=== PATIENT | male | born 1950 | race Caucasian/White ===

== ENCOUNTER → 2017-11-06 12:41 | Outpatient (CLI) | payer MEDICARE, SELFPAY ==
--- NOTE | 2017-11-06 12:55 | MRI_ITS ---
STUDY: MRI LUMBAR SPINE WITHOUT CONTRAST REASON FOR EXAM: Male, 67 years old. Back and right leg pain TECHNIQUE: Standardized fat and water weighted pulse sequences were obtained in the sagittal and axial planes. COMPARISON: February 10, 2016 FINDINGS: No evidence for acute fracture or subluxation There are multiple scattered interosseous fatty deposits or hemangiomata. T12-L1: Normal endplates. Normal disc height, hydration and morphology. Normal bilateral facet joints. Normal central canal and bilateral lateral recesses. Normal bilateral intervertebral neural foramina. Normal lumbar lordosis. There is no substantial scoliosis. Normal conus medullaris that terminates at T12-L1 L1-2: Normal endplates. Normal disc height, hydration and morphology. Normal bilateral facet joints. Normal central canal and bilateral lateral recesses. Normal bilateral intervertebral neural foramina. L2-3: Normal endplates. Normal disc height, hydration and minimal annular bulge.. Minor facet arthropathy.. Normal central canal. Mild bilateral recess encroachment.. Normal bilateral intervertebral neural foramina. L3-4: Grade 1 spondylolisthesis Normal endplates. Normal disc height, desiccation and mild bulging disc osteophyte complex.. Facet arthropathy and thickening of ligamenta flava.. Moderate narrowing of the central canal. Moderate to severe bilateral recess and neuroforaminal stenosis exaggerated by shortened pedicles. L4-5: Normal endplates. Narrowed disc space and desiccation of the disc and minor annular bulge.. Bilateral facet arthropathy and mild thickening of ligamenta flava.. Normal central canal. Moderate to severe bilateral recess and neuroforaminal stenosis.. L5-S1: Normal endplates. Normal disc height, desiccation and minimal bulging disc osteophyte complex.. Bilateral facet arthropathy.. Normal central canal and bilateral lateral recesses. Normal bilateral intervertebral neural foramina. Normal visualized sacral ala. Normal visualized paraspinous soft tissue structures. No significant change since prior exam MRI/Spine Lumbar (Routine) IMPRESSION: Spinal stenosis at L3-4 and L4-5 secondary to disc disease and bony hypertrophy exaggerated by shortened pedicles. Other findings as above Electronically Signed: Michael Roberto MD at 21:28 EDT , Service support ,
== END ==
PROVIDERS: Family Provider Family Medicine; PCP Family Medicine; Visit Provider Anesthesiology Pain Medicine
DX: M54.9 Dorsalgia, unspecified (principal); M79.606 Pain in leg, unspecified
CPT/HCPCS: 72148

== ENCOUNTER 2018-01-16 18:21 | Emergency (ER) | payer MEDICARE, SELFPAY ==
[2018-01-16 18:22] VITALS: BP 126/69; PULSE 68; RESP 15; TEMP 36.8; O2SAT 98; BMI 41.3
[2018-01-16] MEDS: carBAMazepine 200 MG Tablet 100 MG PO (19:06)
--- NOTE | 2018-01-16 19:21 | ED.VISSUMM ---
- ER Visit Summary Date of Service: 01/16/18 Chief Complaint: Head pain History of Present Illness: The patient is a [address] Thapa. Patient reports that beginning yesterday he is having intermittent episodes of a sharp pain left side of his head the last seconds at a time. He states pain Zeta 10 at worst and is pain-free currently. Is worsened by twisting Z. She relieved by Tylenol. Has any change in his vision. No numbness or weakness. No photophobia. No nausea or vomiting. Review of systems: General: No fever, chills, cold sweats. Cardiovascular: No chest pain, palpitations. Respiratory: No cough, shortness of breath, dyspnea on exertion. Gastrointestinal: No abdominal pain, nausea, vomiting, diarrhea, melena, or hematochezia. Genitourinary: No dysuria, frequency, hematuria. Skin: No rash. Neuro: No headache, numbness, weakness. Physical Examination: Vitals: Stable. Afebrile. General: Well-nourished and well-developed. Head: Normocephalic atraumatic. Neck: Supple, no lymphadenopathy. No JVD. Nontender. Cardiovascular: Regular rate and rhythm. No murmurs. Respiratory: No respiratory distress. Clear to auscultation bilaterally. Abdominal: Soft, nontender, nondistended, normal bowel sounds. No guarding, rebound, or peritoneal signs. Back: Nontender. Extremities: Nontender, no edema. Skin: Normal color, no rash. Neurologic: Alert and oriented ?3. Cranial nerves II through XII are intact. Normal strength and sensation. Psych: Normal affect. Test Results: Clinical Impression(s) from Imaging Studies Brain CT 01/16/18 18:44 IMPRESSION: Mild periventricular white matter ischemic changes.. Arachnoid cyst in the right middle cranial fossa which is not clinically significant. No evidence for obstructive hydrocephalus mass or acute bleed Bilateral maxillary ethmoid and right sphenoid sinusitis Electronically Signed: Michael Roberto MD at 19:14 EDT , Service support , Emergency Department Course and Treatment: Patient's location of his pain is in the superior portion of the mandibular branch of the trigeminal nerve. He was treated with Tegretol p.o. and is resting comfortably. Treatment Plan: Patient will be discharged Tegretol. Instructed follow-up his primary care physician in 3-5 days if not improving to increase the dose of this. Return to the emergency department for any worsening symptoms. Disposition: To home in improved and stable condition. Impression: 1. Trigeminal neuralgia. This note was generated with [employer] dictation software. It may contain incorrect words, spelling, and punctuation that were not noted in review of the chart prior to signing ED Disposition - Plan for ED Patient: Disposition: Home or Assisted Living Chief Complaint: Headache Instructions: ED Neuralgia Trigeminal Prescriptions: Carbamazepine [Tegretol] 100 mg PO BIDCM #30 tablet Referrals: Wallace Thapa MD [Primary Care Provider] - 3-5 Days
[2018-01-16 19:33] VITALS: O2SAT 94
== END 2018-01-16 19:34 | disposition home or self-care (01) ==
LOC: ED 19:12
PROVIDERS: Emergency Provider Emergency Medicine; Family Provider Family Medicine; PCP Family Medicine
DX: G50.0 Trigeminal neuralgia (principal); I10 Essential (primary) hypertension; E78.00 Pure hypercholesterolemia, unspecified
CPT/HCPCS: 70450; 99283

== ENCOUNTER → 2018-07-02 12:02 | Outpatient (CLI) | payer MEDICARE, SELFPAY ==
[2018-07-02 13:25] LABS: Hemoglobin A1c 5.8 % (4.2-6.3)
[2018-07-02 13:27] LABS: ALB/GLOB Ratio 1.3 RATIO (0.9-2.4); AST(SGOT) 20 U/L (15-37); Alanine Aminotransfer ALT/SGPT 36 U/L (16-61); Albumin, Serum 3.9 g/dL (3.2-5.0); Alkaline Phosphatase 57 U/L (45-117); Anion Gap 8 (5-15); BUN 20 mg/dL (7-18); BUN/Creat Ratio 25.3 RATIO (10-20); Calcium,Total 8.7 mg/dL (8.5-10.1); Chloride 107 mmol/L (98-107); Cholesterol 153 mg/dL (200); Creatinine, Serum 0.79 mg/dL (0.70-1.30); EST Glomerular Filtration Rate 104 mL/min (>60); Est Glom Filt Rate - Afr Amer 126 mL/min (>60); Glucose 95 mg/dL (74-106); High Density Lipoprotein 32 mg/dL; Potassium 4.1 mmol/L (3.5-5.1); Protein, Total 6.9 g/dL (6.4-8.2); Sodium Level 139 mmol/L (136-145); Triglycerides 159 mg/dL; Very Low Density Lipoprotein 32 mg/dL (5-40)
== END ==
PROVIDERS: Family Provider Family Medicine; PCP Family Medicine; Referring Provider Family Medicine; Visit Provider Family Medicine
DX: Z00.00 Encounter for general adult medical examination without abnormal findings (principal); E87.2 Acidosis; Z79.899 Other long term (current) drug therapy
CPT/HCPCS: 80053; 80061; 83036

== ENCOUNTER → 2018-11-05 | Outpatient (CLI) | payer MEDICARE, SELFPAY ==
[2018-11-05 16:31] LABS: Absolute Lymphocyte Count 1.45 X10^3/ul (0.83-4.51); Absolute Neutrophil Count 5.9 X10^3/uL (2.0-7.7); Basophil# 0.04 X10^3/uL; Basophil% 0.5 % (0-1); Eosinophil# 0.29 X10^3/uL; Eosinophils% 3.4 % (0-5); Hemoglobin 15.4 g/dl (13.0-16.5); Lymphocyte # 1.45 X10^3/ul (4.0); Lymphocyte % 17.2 % (19-41); Mean Corp Hgb Conc 34.2 g/gl (32-36); Mean Corpuscular Hgb 32.4 pg (27.0-32.0); Mean Corpuscular Volume 94.7 fL (80-94); Mean Platelet Vol. 10.2 fl (6.2-12.0); Monocyte# 0.75 X10^3/uL; Monocyte% 8.9 % (0-10); Neutrophil % 69.8 % (47-70); Platelet Count 289 K/mm3 (150-450); RBC Distribution Width CV 13.2 % (11.6-14.6); RBC Distribution Width SD 45.9 fl (35.1-43.9); Red Blood Count 4.75 M/mm3 (4.6-6.2); White Blood Count 8.5 K/mm3 (4.4-11.0)
[2018-11-05 16:33] LABS: POSITIVE COUNT NO; POSITIVE DIFFERENTIAL NO; POSITIVE MORPHOLOGY NO
[2018-11-05 16:36] LABS: Anion Gap 9 (5-15); BUN 16 mg/dL (7-18); BUN/Creat Ratio 18.8 RATIO (10-20); CRP < 2.90 mg/L (0.0-3.0); Chloride 104 mmol/L (98-107); Creatinine, Serum 0.85 mg/dL (0.70-1.30); EST Glomerular Filtration Rate 96 mL/min (>60); Erythrocyte Sedimentation Rate 9 mm/hr (0-20); Est Glom Filt Rate - Afr Amer 116 mL/min (>60); Glucose 90 mg/dL (74-106); Potassium 4.1 mmol/L (3.5-5.1); Sodium Level 139 mmol/L (136-145); Thyroid Stim Hormone (TSH) 1.78 uIU/mL (0.358-3.74)
[2018-11-09 03:06] LABS: Lyme IgG P18 Ab Absent (.); Lyme IgG P23 Ab Absent (.); Lyme IgG P28 Ab Absent (.); Lyme IgG P30 Ab Absent (.); Lyme IgG P39 Ab Absent (.); Lyme IgG P41 Ab Absent (.); Lyme IgG P45 Ab Absent (.); Lyme IgG P58 Ab Absent (.); Lyme IgG P66 Ab Absent (.); Lyme IgG P93 Ab Absent (.); Lyme IgM P23 Ab Absent (.); Lyme IgM P39 Ab Absent (.); Lyme IgM P41 Ab Absent (.)
[2018-11-11 11:36] LABS: Lyme IgG WB Interpretation Negative (.); Lyme IgM WB Interpretation Negative (.)
== END | disposition home or self-care (01) ==
PROVIDERS: Referring Provider Family Medicine; Visit Provider Family Medicine
DX: R53.83 Other fatigue (principal); M79.10 Myalgia, unspecified site
CPT/HCPCS: 80048; 84443; 85025; 85652; 86140; 86617

== ENCOUNTER → 2019-05-06 16:25 | Outpatient (CLI) | payer MEDICARE, SELFPAY ==
--- NOTE | 2019-05-06 16:30 | RAD_ITS ---
STUDY: X-RAY - LUMBAR SPINE REASON FOR EXAM: Male, 68 years old. Low back pain. TECHNIQUE: 3 view(s) of the lumbar spine were obtained. COMPARISON: 12/22/2015. FINDINGS: Normal lumbar lordosis. There is no substantial scoliosis. There is a normal alignment of the vertebrae. Normal vertebral bodies. There is multilevel spondylosis.. There is multi-level degenerative disc disease with multi-level disc space narrowing. There are degenerative changes of the facet joints throughout the mid and lower spine. The soft tissue structures are unremarkable. RAD/Lumbar Spine 2 or 3 Views IMPRESSION: Degenerative changes of the spine, as detailed above. No demonstrated fracture. Electronically Signed: Jacky Richmond MD at 4:34 EST , Service support ,
== END ==
PROVIDERS: Family Provider Family Medicine; PCP Family Medicine; Referring Provider Anesthesiology Pain Medicine; Visit Provider Anesthesiology Pain Medicine
DX: M54.9 Dorsalgia, unspecified (principal)
CPT/HCPCS: 72100

== ENCOUNTER → 2019-07-03 16:48 | Outpatient (CLI) | payer MEDICARE, SELFPAY ==
[2019-07-03 17:26] LABS: Absolute Lymphocyte Count 1.38 X10^3/uL (0.83-4.51); Absolute Neutrophil Count 5.9 X10^3/uL (2.0-7.7); Basophil# 0.07 X10^3/uL; Basophil% 0.8 % (0-1); Eosinophil# 0.23 X10^3/uL; Eosinophils% 2.8 % (0-5); Hematocrit 46.3 % (40-54); Hemoglobin 15.3 g/dL (13.0-16.5); Lymphocyte # 1.38 X10^3/ul (4.0); Lymphocyte % 16.7 % (19-41); Mean Corpuscular Volume 93.7 fL (80-94); Mean Platelet Vol. 9.7 fl (6.2-12.0); Monocyte# 0.67 X10^3/uL; Monocyte% 8.1 % (0-10); NRBC Flagged by Analyzer 0 % (0-5); Neutrophil # 5.88 X10^3/uL (2.7-7.7); Neutrophil % 71.2 % (47-70); Platelet Count 308 K/mm3 (150-450); RBC Distribution Width SD 44.4 fl (35.1-43.9); Red Blood Count 4.94 M/mm3 (4.6-6.2); White Blood Count 8.3 K/mm3 (4.4-11.0)
[2019-07-03 17:27] LABS: CRP 4.63 mg/L (0.0-3.0)
[2019-07-03 17:29] LABS: Erythrocyte Sedimentation Rate 17 mm/hr (0-20)
== END ==
PROVIDERS: PCP Family Medicine; Referring Provider Ophthalmology; Visit Provider Ophthalmology
DX: M31.6 Other giant cell arteritis (principal)
CPT/HCPCS: 85025; 85652; 86140

== ENCOUNTER → 2019-07-14 06:35 | Outpatient (CLI) | payer MEDICARE, SELFPAY ==
--- NOTE | 2019-07-14 06:41 | MRI_ITS ---
EXAM DESCRIPTION: MRI of the brain and orbits CLINICAL HISTORY: 68 years Male, vision loss left eye, optic nerve edema COMPARISON: Previous CT scan obtained on 01/17/2000 TECHNIQUE: An MRI was performed utilizing axial diffusion and ADC map images followed by axial T2 and FLAIR and gradient echo images followed by sagittal and axial T1 weighted images. Coronal T2-weighted images through the orbits were obtained along with axial pre and postcontrast T1-weighted images through the orbits followed by coronal postcontrast T1-weighted images through the orbits. FINDINGS: The diffusion weighted axial images and ADC map images of the head show no evidence of restricted diffusion. The mars, medulla and midbrain and cerebellum appear to be normal. The ventricles and sulci are normal in size and shape. There are some scattered focal areas of increased signal seen in the sánchez radiata bilaterally, commonly found patient''s age. In addition there appears to be a fluid collection seen anterior to the right temporal lobe in the anterior aspect of the middle cranial fossa most likely representing an arachnoid cyst.The basal ganglia appear to be normal. No enhancing masses or lesions are seen. The gradient echo axial images are normal. No evidence of a Chiari I malformation is identified. The fourth segment of the left vertebral artery appears to be normal and supplies the basilar artery. The V4 segment of the right vertebral artery is small and probably supplies only the right PICA. the basilar artery, the posterior cerebral arteries have a normal P1 and P2 segment on the right but on the left, there appears to be a origin of the left posterior cerebral artery. On the coronal images there are findings suspicious for aneurysm involving the A1 segment of the left anterior cerebral artery with a flow void measuring about 6 x 5 mm in size. This is of uncertain etiology and could be tortuosity of this vessel, however, a barium aneurysm in this location cannot be completely excluded. For this reason, MRA of the head would be helpful for additional evaluation. the cavernous and supraclinoid carotid arteries, and the M1 segments of the middle cerebral arteries are all normal The orbits were carefully examined. The right globe and optic nerve was well visualized and appears to be normal. On the left side the retinal orbital and canalicular and cisternal segments of the left optic nerve appear to be normal. The left optic tract appears to be compressed by a 6 x 5 mm signal void structure suspicious for a frausto aneurysm. . The pituitary and pituitary infundibulum appear to be normal. The inner and outer tables of the skull are normal the frontal sinuses are normal. There is mucoperiosteal reaction involving the right ethmoid sinuses and the right maxillary sinus. Left maxillary sinus is normal. The mastoid air cells are normal. MRI/Brain W/WO Contrast IMPRESSION: 1. A questionable 5 x 6 mm ovoid signal void is noted adjacent to the left optic tract of uncertain etiology. A frausto aneurysm cannot be completely excluded and an MRA of the head is recommended for further evaluation. 2. Low-grade sinusitis involving the right ethmoid and maxillary sinuses. Electronically Signed: Cj Marshall, at 12:12 EST Tel , Service support ,
[2019-07-14 13:56] LABS: CREATININE FINGERSTICK 1.1 mg/dL (0.70-1.30); EGFR FINGERSTICK > 60.0000 mL/min (>60)
== END ==
PROVIDERS: PCP Family Medicine; Referring Provider Ophthalmology; Visit Provider Ophthalmology
DX: H47.10 Unspecified papilledema (principal); H54.62 Unqualified visual loss, left eye, normal vision right eye
CPT/HCPCS: 70553; A9575

== ENCOUNTER → 2019-07-22 17:42 | Outpatient (CLI) | payer MEDICARE, SELFPAY ==
--- NOTE | 2019-07-22 18:15 | MRI_ITS ---
STUDY: MRA OF THE HEAD WITHOUT CONTRAST REASON FOR EXAM: Male, 68 years old. Acute vision loss left eye, ? aneurysm seen on MRI brain07/14/19 TECHNIQUE: 3-D [id number] (TOF) imaging was performed with MIPs. The study was performed unenhanced. COMPARISON: None. FINDINGS: Normal bilateral petrous carotid arteries. Normal right cavernous carotid artery with a normal supraclinoid bifurcation. Normal left cavernous carotid artery with a normal supraclinoid bifurcation. Normal right A1 segments of the anterior cerebral artery. Normal left A1 segments of the anterior cerebral artery. Normal intact anterior communicating artery (ACOM). Normal bilateral A2 segments of the anterior cerebral arteries. Normal right M1 and M2 segments of the middle cerebral arteries, with a normal M1 bifurcation. Normal left M1 and M2 segments of the middle cerebral arteries, with a normal M1 bifurcation. Posterior communicating arteries are not visualized which may be consistent with normal variant. Left vertebral artery is normal. The distal right vertebral is nonvisualized.. Normal basilar artery with a normal basilar bifurcation. The visualized bilateral superior cerebellar (SCA) arteries are normal. Normal left posterior cerebral artery.. Hypoplastic P1 and P2 segments of the right posterior cerebral artery There is no demonstrated aneurysm of the chitina of [place]. There is no major vessel occlusion or hemodynamically significant stenosis. There is no demonstrated abnormality of the visualized brain. MRI/MRA Head ONLY without Contrast IMPRESSION: Normal MRA of the head No evidence for aneurysm Electronically Signed: Michael Roberto MD at 19:32 EST , Service support ,
== END ==
PROVIDERS: PCP Family Medicine; Referring Provider Ophthalmology; Visit Provider Ophthalmology
DX: H54.62 Unqualified visual loss, left eye, normal vision right eye (principal)
CPT/HCPCS: 70544

== ENCOUNTER 2020-07-14 10:30 | Outpatient (RCR) | payer MEDICARE, SELFPAY ==
--- NOTE | 2020-06-17 12:48 | HP.PTEVAL_ITS ---
Patient's Visit Information PARKER JAY is a 69 year old M referred to Physical Therapy by Dr. Gonzalo Lacy DO with a diagnosis of Lumbar Stenosis with LE radiculopathy; Leg Pain. Date of Evaluation: 06/17/20 Physical Therapist: Milad Deal, PT, Cert MDT, OCS - Visit Plan Frequency: 2x /Week Duration: 4 Weeks Plan: 2xs/week for 4 weeks per POC. PT Interventions: Lumbar AROM, LE strengthening, Core stabilization exercises, gait, postural training. - Subjective Patient is a 69 year old male presenting to the clinic with R LE pain from the knee down. Patient states right LE pain has worsened in the past 3-4 days. Saw the yesterday. Was getting injections about a year ago but did not see benefits. Started exercising last Sunday after having a year off. Hx of bilateral knee arthroplasty and R foot surgery. Pain is located in lateral calf and R knee. Pain is constant with standing, walking, sitting. Denies any numbness/tingling in R LE. Coughing and sneezing is positive. B&B working well. Returning to in 6 weeks if pain hasn't subsided. Sees primary care beginning of July. Pain is impacting sleeping negatively.Patient has h/o lumbar pain with PT and pain management .Recent imaging x-rays of right knee a nd lower leg tibia/fibula. Patie nt had MRI 2018 showed mod/severe foraminal stenosis and mod cnals stenosis. Social: - Pain Right Lower Extremity Pain Intensity (Out of 10): 8 Pain Intensity Range: 10 Comment: Pain located in R knee and lateral calf. - Objective Gait: Antalgic gait on R, slight lateral lean. Required rest breaks walking into clinic due to pain. Palpation: Unremarkable. Posture: Foward flexion. Sensation: Intact to light tough in B LE. Reflexes: WNL. Lumbar AROM: Flexion 50% (decreased LE symptoms), Ext 25% (increased symptoms). LE Strength: R hip flexion 4+/5, quads 5/5, hams 5/5, DF 5/5, PF 5/5, hip IR 5/5, hip ER 5/5. L hip flexion 5/5, quads 5/5, hams 5/5, DF 5/5, PF 5/5, hip IR 5/5, hip ER 5/5. SLR: Positive on R, Negative on L - Special Tests L/S Left Straight Leg Raise: Negative L/S Right Straight Leg Raise: Positive Lumbar Standing: Flexion - Mechanical Response: No effect Lumbar Standing: Flexion - Symptoms During Testing: Decreases Lumbar Standing: Flexion - Symptoms After Testing: Better Comments:: Calf Lumbar Standing: Extension - Mechanical Response: No effect Lumbar Standing: Extension - Symptoms During Testing: Increases Lumbar Standing: Extension - Symptoms After Testing: Worse - Goals Goal 1:: Patient will demonstrate independence with HEP. Goal Time Frame: 4-6 Weeks Goal 2:: Patient will improve LE strength to 5/5 for improved functional strength. Goal Time Frame: 4-6 Weeks Goal 3:: Patient will demonstrate improved lumbar ROM to <50% limitation for improved functional mobility. Goal Time Frame: 4-6 Weeks Goal 4:: Patient will improve Oswestry disability index (back) by 5 or > points for improved QOL. Goal Time Frame: 4-6 Weeks Goal 5:: Normalized gait pattern with less antalgic gait. - Rehabilitation Potential Physical Therapy Diagnosis: Patient is a 69 year old male presenting to the clinic with radicular symptoms into R LE. Pain likely due to lateral stenosis with foraminal narrowing. Pain helped with lumbar flexion and increased by lumbar extension. Rehabilitation Potential: Good - Anticipated Interventions Patient/Client Instruction: Educate patient on: Condition, Plan of Care For the Purpose of:: To decrease pain, To increase ROM, To improve muscle performance and motor function, To improve ability to perform ADL's, To increase tolerance to activity/condition/position, To improve performance and independence with ADL's, To improve ability of physical actions for home/community/work/leisure, To improve gait and locomotor functions, To improve health of tissue, To increase flexibility/ROM, To improve health and function, To improve self management, To improve ability to perform tasks related to life management, To improve tolerance to ADL's Therapeutic Exercise to Include: Strength training, Body mechanics, Postural training, Flexibilty training, Gait and locomotor training, Active ROM Comment: LE strengthening, Core strength/stability For the Purpose of:: To decrease pain, To increase ROM, To improve muscle performance and motor function, To improve ability to perform ADL's, To increase tolerance to activity/condition/position, To improve performance and independence with ADL's, To improve ability of physical actions for home/community/work/leisure, To increase flexibility/ROM, To improve health and function, To improve ability to perform tasks related to life management, To improve tolerance to ADL's IF ES: Yes Other electric stimulation: Yes Cryotherapy (ice pack, ice massage): Yes Thermo therapy (hot pack): Yes Ultrasound (thermal/non thermal): Yes For the Purpose of:: To decrease pain, To increase ROM, To improve muscle performance and motor function, To improve ability to perform ADL's, To increase tolerance to activity/condition/position, To improve performance and independence with ADL's, To improve ability of physical actions for home/community/work/leisure, To increase flexibility/ROM, To improve health and function, To improve ability to perform tasks related to life management, To improve tolerance to ADL's Thank you for the opportunity to evaluate your patient. For Medicare and Medicare HMO plans, please review the plan of care and approve it. It will need to be FAXED BACK to us at [phone] for Medicare purposes. For Medicare only, by signing this I certify the plan of care. Please let me know if there are questions or concerns regarding this plan of c are. Physician Signature: Date:
--- NOTE | 2020-07-14 11:30 | HP.PTDCSUM ---
It has been my pleasure to treat PARKER JAY referred by Dr. Gonzalo Lacy DO, with the diagnosis of Lumbar Stenosis with LE radiculopathy; Leg Pain for a total of 9 visit(s). Discharge Date: 07/14/20 Please see the following information for a summary of their discharge status. Subjective: Patient states he is feeling about the same. Reports his pain levels have deccreased since starting therapy. Reports wanting to continue on his own and be D/C from therapy. Right Lower Extremity Pain Intensity (Out of 10): 5 % Improvement: 80 Objective/Function: Lumbar AROM: Flexion 75%, ext 50%, Sidebending 75%, Rotation 50%. LE MMT: L hip flexion 5/5, quad 5/5, hams 5/5, DF 5/5, PF 5/5. R hip flexion 5/5, quad 5/5, hams 5/5, DF 5/5, PF 5/5. Patient tolerated all exercise this date with no reports of increased pain. Goal 1:: Patient will demonstrate independence with HEP. Goal Progress: Goal Met Goal 2:: Patient will improve LE strength to 5/5 for improved functional strength. Goal Progress: Goal Met Goal 3:: Patient will demonstrate improved lumbar ROM to <50% limitation for improved functional mobility. Goal Progress: Progressing Goal 4:: Patient will improve Oswestry disability index (back) by 5 or > points for improved QOL. Goal Progress: Goal Met Goal 5:: Normalized gait pattern with less antalgic gait. Goal Progress: Goal Met Plan: d/c to gym and hep Discharge Comments: HEP AND GYM If there are questions or concerns regarding this patient's physical therapy, please feel free to call me at [phone]. Thank you for the referral of this patient. Sincerely, Milad Deal, PT, Cert MDT, OCS
== END 2020-07-14 19:00 | disposition home or self-care (01) ==
LOC: PT 10:30
PROVIDERS: PCP Family Medicine; Referring Provider Orthopaedic Surgery; Visit Provider Orthopaedic Surgery
DX: M48.061 Spinal stenosis, lumbar region without neurogenic claudication (principal); M54.16 Radiculopathy, lumbar region; M79.606 Pain in leg, unspecified
CPT/HCPCS: 97110; 97162

== ENCOUNTER → 2020-07-21 10:03 | Outpatient (CLI) | payer MEDICARE, SELFPAY ==
[2020-07-21 10:37] LABS: Cholesterol 161 mg/dL (200); High Density Lipoprotein 33 mg/dL; Triglycerides 177 mg/dL; Very Low Density Lipoprotein 35 mg/dL (5-40)
== END ==
PROVIDERS: PCP Family Medicine; Referring Provider Family Medicine; Visit Provider Family Medicine
DX: E78.5 Hyperlipidemia, unspecified (principal); Z12.5 Encounter for screening for malignant neoplasm of prostate
CPT/HCPCS: 80061; 84153; G0103

== ENCOUNTER → 2021-05-02 12:42 | Outpatient (CLI) | payer MEDICARE, SELFPAY ==
[2021-05-02 13:27] LABS: CPK Total, Creatine Kinase 97 U/L (39-308)
[2021-05-02 13:29] LABS: BNP,B-Type NATRIURETIC PEPTIDE 8.8 pg/mL (0-100)
== END ==
PROVIDERS: PCP Family Medicine; Visit Provider Nurse Practitioner Family
DX: R07.9 Chest pain, unspecified (principal)
CPT/HCPCS: 82550; 83880

== ENCOUNTER → 2022-02-27 | Outpatient (CLI) | payer MEDICARE, SELFPAY ==
--- NOTE | 2022-02-27 08:43 | MRI_ITS ---
STUDY: MRI LUMBAR SPINE WITHOUT CONTRAST REASON FOR EXAM: Male, 71 years old. Right L4 radiculopathy Other, LOW BACK PAIN WITH RIGHT LEG WEAKNESS AND RIGHT FOOT DROP. SYMPTOMS X SEVERAL YEARS. NO PREVIOUS SURGERIES ON BACK. XR LUMBAR 02/15/22;MR LUMBAR 11/06/17 TECHNIQUE: Standardized fat and water weighted pulse sequences were obtained in the sagittal and axial planes. COMPARISON: MRI of the lumbar spine dated NOVEMBER 06, 2017. X-ray the lumbar spine dated February 15, 2022 FINDINGS: There is straightening of the normal lumbar lordosis. There is no substantial scoliosis. Normal conus medullaris that terminates at the T12-L1 level. No marrow edema or fracture or compression deformity is present. Multiple benign fatty vertebral body hemangiomas are reidentified. T12-L1: Normal endplates. Normal disc height, hydration and morphology. Normal bilateral facet joints. Normal central canal and bilateral lateral recesses. Normal bilateral intervertebral neural foramina. L1-2: Normal endplates. Normal disc height, hydration and morphology. Normal bilateral facet joints. Normal central canal and bilateral lateral recesses. Normal bilateral intervertebral neural foramina. L2-3: Normal endplates. Diffuse disc desiccation with mild disc space narrowing and annular bulging. Mild facet joint hypertrophy. Mild central canal stenosis due to combine annular bulging and mild to moderate facet joint hypertrophy. Mild to moderate right foraminal stenosis with posterior nerve root impingement. Normal left neural foramen. L3-4: Moderate disc space narrowing with diffuse disc desiccation and mild annular bulging. Mild MODIC endplate degenerative signal. Anterolisthesis of L3 on L4 of 2 mm. Severe central canal stenosis is present due to severe facet joint and ligamenta flava hypertrophy. Mild right foraminal stenosis. Normal left neural foramen. L4-5: Mild MODIC endplate degenerative signal. Mild to moderate disc space narrowing with a diffuse disc bulge/spur complex, in addition to a moderate size right paracentral and proximal foraminal disc extrusion measuring 1.5 x 0.94 cm in diameter which causes compression of the right descending nerve root, right lateral recess stenosis, and contributes to moderate central canal stenosis. Moderate facet joint and ligament of flava hypertrophy. Normal bilateral intervertebral neural foramina. L5-S1: Normal endplates. Disc disc desiccation. Normal disc height and morphology. Mild to moderate facet joint hypertrophy and mild degeneration. Normal central canal and bilateral lateral recesses. Normal bilateral intervertebral neural foramina. Normal visualized sacral ala. Normal visualized paraspinous soft tissue structures. MRI/Spine Lumbar (Routine) IMPRESSION: 1. Multilevel degenerative changes, as described above. 2. Severe central canal stenosis at L3-L4 3. Moderate central canal stenosis at L4-L5 4. Right paracentral/proximal foraminal disc extrusion measuring 1.5 x 0.94 cm contributing to right lateral recess stenosis with nerve root compression. Electronically Signed: Terry Mcrae MD at 15:16 EDT ,
== END | disposition home or self-care (01) ==
PROVIDERS: PCP Family Medicine; Referring Provider Orthopaedic Surgery; Visit Provider Orthopaedic Surgery
DX: M54.16 Radiculopathy, lumbar region (principal)
CPT/HCPCS: 72148

== ENCOUNTER 2022-05-16 11:50 | Observation (INO) | payer MEDICARE, SELFPAY ==
--- NOTE | 2022-03-31 08:29 | EKG12_ITS ---
Test Reason : PRE-OP Blood Pressure : / mmHG Vent. Rate : 075 BPM Atrial Rate : 075 BPM P-R Int : 178 ms QRS Dur : 088 ms QT Int : 384 ms P-R-T Axes : 044 048 062 degrees QTc Int : 428 ms Sinus rhythm with occasional Premature ventricular complexes Otherwise normal ECG Confirmed by PARMINDER SLOAN, BRADY ([id number]), design editor WAGNER GUEVARA ([id number]) on 04/04/2022 10:57:07 AM Referred By: Brendon Flores Confirmed By:JASBIR ZURITA MD
[2022-03-31 10:00] LABS: Absolute Lymphocyte Count 2.63 X10^3/uL (0.83-4.51); Absolute Neutrophil Count 9.8 X10^3/uL (2.0-7.7); Basophil# 0.08 X10^3/uL; Basophil% 0.6 % (0-1); Eosinophil# 0.11 X10^3/uL; Eosinophils% 0.8 % (0-5); Hematocrit 44.6 % (40-54); Hemoglobin 14.8 g/dL (13.0-16.5); Lymphocyte # 2.63 X10^3/ul (0.83-4.51); Lymphocyte % 18.8 % (19-41); Mean Corp Hgb Conc 33.2 g/dL (32-36); Mean Corpuscular Hgb 32.5 pg (27.0-32.0); Mean Corpuscular Volume 97.8 fL (80-94); Mean Platelet Vol. 9.8 fl (6.2-12.0); Monocyte# 1.08 X10^3/uL; Monocyte% 7.7 % (0-10); NRBC Flagged by Analyzer 0 % (0-5); Neutrophil # 9.81 X10^3/uL (2.7-7.7); Neutrophil % 70.1 % (47-70); Platelet Count 360 K/mm3 (150-450); RBC Distribution Width CV 13.4 % (11.6-14.6); Red Blood Count 4.56 M/mm3 (4.6-6.2)
[2022-03-31 10:48] LABS: Anion Gap 8 (5-15); BUN 18 mg/dL (7-18); BUN/Creat Ratio 18.8 RATIO (10-20); Calcium,Total 8.7 mg/dL (8.5-10.1); Chloride 104 mmol/L (98-107); Creatinine, Serum 0.96 mg/dL (0.70-1.30); EST Glomerular Filtration Rate 82 mL/min (>60); Est Glom Filt Rate - Afr Amer 100 mL/min (>60); Glucose 86 mg/dL (74-106); Potassium 3.7 mmol/L (3.5-5.1); Sodium Level 139 mmol/L (136-145)
[2022-03-31 11:07] LABS: HIV - WCH Non-Reactive (Nonreactive); Hepatitis B Surface Antibody Reactive; Hepatitis C Antibody Non-Reactive (Nonreactive)
[2022-03-31 11:36] LABS: Mucous, Urine 0 SEEN /hpf (<or=2+); Red Blood Cells-Urine 0 SEEN /hpf (0-5)
--- NOTE | 2022-03-31 11:50 | RAD_ITS ---
STUDY: X-RAY CHEST REASON FOR EXAM: Male, 71 years old. High WBC TECHNIQUE: PA and lateral views of the chest. COMPARISON: Comparison is made with prior study dated 04/26/2016. FINDINGS: There is hyperinflation of the lungs consistent with chronic obstructive lung disease (COPD). Mild scarring at the left lung base. There is no demonstrated pleural abnormality. Normal size heart. Normal mediastinum and melissa. Normal visualized pulmonary arteries. There is atherosclerotic tortuosity of the aortic arch and descending thoracic aorta. There are diffuse degenerative changes of the visualized thoracic spine. Normal visualized ribs, clavicles, and shoulders. There is no demonstrated abnormality of the visualized soft tissue structures of the upper abdomen. RAD/Chest PA and Lateral IMPRESSION: Hyperinflation. Mild scarring at the left lung base. Electronically Signed: Johnson Preciado MD at 13:00 EST ,
[2022-03-31 11:58] LABS: Color, Urine Yellow (Yellow); Glucose, Dipstick Normal (Normal); Ketone-Dipstick Negative (Negative); Leukocyte Esterase-Dipstick Negative /ul (Negative); Nitrite-Dipstick Negative (Negative); Occult Blood-Urine Negative /ul (Negative); Protein-Dipstick Negative (Negative); Urine Bilirubin Dipstick Negative (Negative); Urine Clarity Clear (Clear); Urine Urobilinogen 1 mg/dl (Normal)
[2022-03-31 12:05] LABS: Amorphous Sediment 2+; Bacteria 2+ /hpf (None Seen)
[2022-03-31 12:06] LABS: Squamous Epithelial Cells - UA 0-5 SEEN /hpf (0-5); White Blood Cells 0-5 SEEN /hpf (0-5)
[2022-03-31 12:53] LABS: Magnesium 2.3 mg/dL (1.6-2.6)
[2022-04-02 10:25] LABS: Hepatitis A AB, Total Negative (Negative)
--- NOTE | 2022-05-04 13:34 | PCM.HP.BLA ---
History and Physical Addendum Date of Service:? 02/15/22 MR#: [id number] Acct: [id number] Name:PARKER ZAIDI Rep #: [id number] : 1950 ? ? Provider: Dr. Brendon Flores, DO Age/Sex:? 71/M ? ? [place] [facility] [place] Status: Signed Intake Intake Visit Reasons:?lumber spine Allergies No Known Allergies Allergy (Verified 02/15/22 09:56) Medications duloxetine 60 mg capsule,delayed release 60 mg PO DAILY pain 05/23/13 [History Confirmed 02/15/22] losartan 50 mg-hydrochlorothiazide 12.5 mg tablet 12.5 mg PO DAILY bp 05/23/13 [History Confirmed 02/15/22] atorvastatin 10 mg tablet 10 mg PO QHS cholesterol 04/26/17 [History Confirmed 02/15/22] celecoxib 100 mg capsule 100 mg PO 06/16/20 [History Confirmed 02/15/22] cyclobenzaprine 10 mg tablet 10 mg PO TID PRN muscle spasm #50 tabs 06/16/20 [Rx Confirmed 02/15/22] gabapentin 300 mg capsule ea PO 06/20/21 [History Confirmed 02/15/22] PFSH Medical History? HTN (hypertension) hx of right foot surgery Sleep apnea Surgical History? History of bilateral carpal tunnel release History of total right knee replacement Social History? Smoking Status:? Current every day smoker alcohol intake:? current alcohol intake frequency: a few times a month HPI lumber spine Details: Parts of this documentation were recorded by a scribe, this documentation accurately reflects the service provided and the decisions made by me, Dr. Brendon Flores, DO 02/15/2248. PARKER JAY is a 71 year old M here today for lower back pain. States that his pain has been building up for years, but in the last few months it has became more of a problem. States that he doesn't have control over his right leg and that he can't really move. No prior surgery on his back. Walking increases his pain. When he is sitting he doesn't have any pain and when there isn't any pain he still doesn't have control over the right leg. Has used ice or heat in the past but it wasn't helpful. He takes Celebrex for arthritis but nothing specifically for his back pain. Every one in awhile he takes Excedrin. Hasn't had any injections in his back. ? Mr. Jay is a most pleasant gentleman 71 years old has chief complaint of pain in his low back.? He has secondary complaint that his right leg does not work right.? It does not hurt however.? The leg problem has been going on about 6 months.? He apparently saw an orthopedic spine surgeon in [place] not that long ago but the doctor informed him that he was moving to [place] a week later.? However he did recommend surgery.? However an MRI scan was not done as far as I know.? Did have a CT scan done but it was an abdominal CT not really one of the spine and of itself.? There is some kind of mass on one of the adrenals and it probably needs to be addressed by his doctor. On examination he can barely stand on his toes he can barely stand on his heels.? He has wasting of the right quad compared to the left.? His right patellar reflexes absent his left 1 is 1+ barely.? He has no other atrophy that I can tell.? He has reasonable motor strength of the other major muscle groups of both lower extremities. Plain x-rays of his spine taken in my office demonstrate that he has a grade 1 spondylolisthesis of L3 on L4 with decreased disc spaces at all levels.? Some lipping is also seen. Obviously because of his neurological deficit and the tremendous amount of pain that he is in an MRI scan is in order.? I will see him after the MRI scan and make further recommendations. Coding Level of Care Code Off vis,new,level 3 Diagnoses DDD (degenerative disc disease), lumbar? M51.36
[2022-05-16] VITALS (19 sets, daily range): BP systolic 109–134; BP diastolic 58–86; PULSE 71–105; RESP 16–18; TEMP 36.4–36.9; O2SAT 92–97; BMI 40.6
[2022-05-16] MEDS: Magnesium 1 GM over 15 mins IV (06:21)
[2022-05-16] MEDS: Acetaminophen 500 MG Tablet 1000 MG PO ×3 (06:21→23:30)
[2022-05-16] MEDS: Lactated Ringers 1,000 ML 15 ML IV (06:22)
[2022-05-16 06:45] LABS: Bedside Glucose 180 mg/dL (74-106)
--- NOTE | 2022-05-16 07:30 | DISC_PTH ---
PATIENT: PARKER JAY LOC: [facility]3 U#:[id number] AGE/SX: 71/M [place] [facility] [place]: Dr. Brendon Flores DO : 1950 BED: 1 DIS: 05/17/2022 SPEC #: [id number] RECD: 05/16/22 13:21 STATUS: MACKENZIE RESuzanne #: [id number] DARIANA: 05/16/22 07:[address]: Brendon Flores DEPT: SURGICAL PATHOLOGY RECD BY: Mykel Bryan ENTERED: 05/16/22 13:39 SP TYPE: DISC OTHR DR: Dr. Wallace Thapa MD Tissues: Intervertebral disc, NOS Procedures: Surgery Specimen Level III HEADER OPERATION: ERAS, laminectomy decompression L3-4 and laminectomy L4-5 PRE-OP DIAGNOSIS: Degenerative disc disease lumbar TISSUE SUBMITTED: Lumbar disc MICROSCOPIC DIAGNOSIS Lumbar disc L3-4, discectomy: Disc with degenerative change. AM:shashi 05/17/2022 MICROSCOPIC DESCRIPTION Slides are reviewed. GROSS DESCRIPTION Received in fixative is one container labeled with the patient's name and designated disc lumbar. The specimen consists of multiple irregular fragments of gale-pink, indurated tissue that in aggregate measure 1 x 1 x 0.3 cm. The specimen is totally submitted in one cassette. / SJ:shashi 05/16/2022 TC:5 CPT: 76319
[2022-05-16] MEDS: Cefazolin 2 GM in 0.9% Normal Saline 100 ML IV (08:15)
[2022-05-16] MEDS: THROMBIN (RECOMBINANT) 20,000 UNIT VIAL 20000 UNIT TOPICAL (08:33)
--- NOTE | 2022-05-16 08:45 | RAD_ITS ---
INDICATION: LAMINECTOMY COMPRESIION L3-4, LAMINECTOMY DISCECTOMY L4-5. EXAMINATION/TECHNIQUE: X-RAY - XR Spine Lumbar 1 View COMPARISON: Lumbar spine radiograph from 02/15/2022. FINDINGS: Intraoperative crosstable lateral film submitted for confirmation of surgical hardware positioning of the L4-L5 level. Surgical instruments are confirmed to be at the L4-L5 level. RAD/Spine 1 View Any Level IMPRESSION: As above. Electronically Signed: Bola Malin, at 14:50 EST ,
--- NOTE | 2022-05-16 12:04 | PCM.OPRPT ---
Report of Operation Description of Surgical Findings:: Preoperative diagnosis: #1 herniated disc L4-5 on the right #2 there are spinal stenosis L3-4 Postoperative diagnosis: The same Procedures: Lumbar laminectomy L4-5 on the right CPT code 91456 Lumbar laminectomy decompression L3-4 CPT code 77351 Surgeon: Dr. Flores assistant oceanographer: Mariann WORKMAN Anesthesia: General endotracheal administered by [facility] EBL: 75 cc Drains: Medium Hemovac that did not hold vacuum. Complications: None Procedure: Patient was taken to the OR where he was placed under general endotracheal anesthesia. He was then placed in the prone position on the Mohan frame. After proper positioning with care to protect his bony prominences his ulnar nerves of both elbows the brachial plexus bilaterally the facial features cervical spine and his genitalia the back was prepped and draped in standard fashion. We then made a longitudinal incision centered over L4-5. Subcutaneous tissues were incised length of skin incision. Elevated the paravertebral muscles to the right of the spinous processes and elevated the paravertebral tables off of the L4 lamina and the top of the L5 lamina. An intraoperative x-ray was taken with a marker placed to confirm that we were indeed at that level. We further elevated paravertebrals off the lamina of 4 and a Milady retractor was then put in place. I then loosen the ligamentum flavum off the underside of the lamina of L4. We then carried out laminectomy with 45 degree Kerrison rongeurs. I also had to remove the top of the L5 lamina with Kerrison rongeurs. The disc was exposed. Note that this right side herniation went just below the actual disc level it had been there long enough apparently to become partially calcified. I was able to remove it in pieces with pituitary rongeurs I also had to use a an osteotome to cut into the calcified portion. This was likewise removed. This completely decompressed at the right L5 nerve root. I then extended the incision cephalad to drip simply 1 level and elevated the paravertebral muscles on both sides off the lamina of L3 the super slide retractors were then put in place. First we started by removing the spinous process of L3 using double-action rongeurs. Note that this level was quite difficult to obtain because of the tremendous amount of degeneration excess osteophytes thickened lamina etc. It was a slow and difficult process once I thinned down the lamina on both sides of the L3 to release ligamentum flavum with small curettes. This was a difficult task. I also released it off of the. Her facets of L4 that were encroaching in the midline also. Again this was a very tedious process. But finally I was able to slowly remove the ligamentum flavum with a 45 degree Kerrison rongeurs. I then remove the medial facet of L4 on both sides. Note that I did all the decompression I could from the right side and then moved to the left side to decompress the right side. We finally were able to remove all the ligamentum flavum were able to observe the the dura that was now expanded of course. I tested it with hockey sticks was found to be quite open with open foramina. Thorough irrigation was carried out every 10 to 50 minutes in the course of this case. Both laminectomy sites were thoroughly irrigated. Then placed amnionic membrane directly over both laminotomy sites. Gelfoam was placed over the top of the amniotic membrane. A medium Hemovac was then inserted. We then closed the lumbar fascia using gjgkel-[id number] suture with #1 Vicryl followed by closure of subcutaneous tissues with 0 Vicryl and 2-0 Vicryl in layers. Finally the skin was approximated using skin clips. Sterile dressings were then applied. He was then recovered in the OR moved to his hospital bed and taken to recovery in satisfactory condition. The end of operative summary on Lee Manley. This is Dr. Flores dictating.
[2022-05-16] MEDS: Lactated Ringers 1,000 ML 100 ML IV ×2 (12:43→22:03)
--- NOTE | 2022-05-16 12:46 | NURSING ---
Pt notes right drop foot, pull back of toes is weaker on right side, however that is normal for pt.
[2022-05-16] MEDS: oxyCODONE 5 MG Tablet PO ×2 (15:48→20:01)
[2022-05-16] MEDS: Cefazolin 1 GM/50 ML BAG IV ×2 (16:00→23:32)
--- NOTE | 2022-05-16 20:09 | PN.HOSP_ITS ---
Subjective Subjective Patient s/p recent lumbar laminectomy L4-5 on the right with decompression L3-4 secondary to herniated disc L4-5 on the right and spinal stenosis L3-[address] Flores. Hospitalist consultation requested for medication management. She currently reports that if he is still his pain is controlled however at the news he does have aching discomfort to the surgical site rated potentially 5-6 out of 10 in severity but improves with avoidance of activities that exacerbate this. He denies any extremity weakness or paresthesias. Patient denies fevers, chills, nausea, emesis, abdominal pain, chest pain or dyspnea. Objective Data Objective Data Vital Signs: Vital Signs Temp Pulse Resp BP Pulse Ox O2 Del Method O2 Flow Rate 98 F 100 18 128/72 H 92 Nasal Cannula 2 05/16/22 18:00 05/16/22 18:00 05/16/22 18:00 05/16/22 18:00 05/16/22 18:00 05/16/22 18:00 05/16/22 18:00 Oxygen Flow Rate (L/min) 2 Oxygen Delivery Method Nasal Cannula Weight: 283 lb 8.231 oz Body Mass Index (BMI) 40.6 Intake & Output: Intake and Output for Last 24 Hours 05/14/22 05/15/22 05/16/22 23:59 23:59 23:59 Intake Total 1568.67 / 1568.67 Output Total 1620 / 1620 Balance -51.33 / -51.33 Lab / Micro Data Result Diagrams: 03/31/22 08:43 03/31/22 08:43 Labs: Laboratory Results - last 24 hr 05/16/22 06:08: POC Glucose 180 H Micro: Microbiology 03/31/22 08:43 Swab (Method) Nasal Screen MRSA/MSSA - Final Radiography Diagnostic Testing: Radiology Impression Spine X-Ray 05/16/22 08:45 IMPRESSION: As above. Electronically Signed: Bola Kimo, at 14:50 EST , Physical Exam Narrative Physical Examination: General: Awake, alert, oriented x 3 and cooperative, seated upright in MS bed, well-appearing however does report pain if he moves. Skin: Normal color, normal turgor, no icterus, no cyanosis except status post OR with incisions covered with dressings, no drainage. HEENT: AT/NC, EOMI, PERRLA, MMM, no carotid bruits or JVD noted; however, thickened neck makes evaluation difficult. Lungs: Diminished, greater bases, no obvious evidence of distress, appropriate effort, no rales, ronchi or wheezing. Heart: Regular rate and rhythm; no gallop, rub audible. Abdomen: Soft, morbidly obese, NTTP, difficult to assess distention given habitus, distant normal BS, no obvious evidence of HSM however habitus makes evaluation difficult. Extremities: No cyanosis, clubbing, or edema. Neurological: Patient awake, alert, oriented as noted, cognitive function intact; pupils equally reactive to light and accommodation, cranial nerves II- XII grossly normal, moving all 4 extremities although limited by recent surgical intervention, strength accordingly moderately to severely globally decreased, no focal deficits noted. Psychiatric: Affect appears normal, no acute evidence of depressive or anxiety feelings. Assessment & Plan Assessment/Plan (1) HNP (herniated nucleus pulposus), lumbar: (2) Spinal stenosis of lumbar region with radiculopathy: PLAN: Plan The patient is a 71 y/o M w/ PMHx: Morbid Obesity, HTN, HLD, SYMONE on BIPAP, Tobacco use, Chronic cannabis usage who presents to the [facility] on 05/16/22 with history of persistent ongoing lower back pain with significant right lower extremity radiculopathy and debility prompting admission with lumbar laminectomy L4-5 on the right with decompression L3-4 secondary to herniated disc L4-5 on the right and spinal stenosis L3-[address] Flores. #1. Significant lumbar back pain with right lower extremity radiculopathy and canal stenosis: Failed conservative therapies and treatments, admitted per Dr. Flores, 05/16/2022 status post lumbar laminectomy L4-5 on the right and lumbar laminectomy decompression L3-4, post-operative pain management, bowel regimen, DVT Prophylaxis, PT/OT/CM per surgery discretion, continue patient chronic duloxetine regimen. #2. Hyperglycemia: Blood sugar assessment per staff with blood sugar 180, no diabetic history report, will obtain hemoglobin C to be cautious. #3. Hypertension: Continue home regimen including losartan, hydrochlorothiazide, PRN hydralazine. #4. Hyperlipidemia: We will continue patient on statin therapy. #5. Morbid Obesity: Weight loss and lifestyle changes encouraged. #6. Tobacco Abuse: Encouraged cessation, inpatient consultation per RT, NR if desired. #7. SYMONE: BiPAP nightly. #8. DVT prophylaxis: SCDs, chemoprophylaxis per surgery discretion given recent OR. Charges/Coding Visit Charges Inpatient E&M: 77838 Subs Hosp L3
[2022-05-16] MEDS: Atorvastatin Calcium 10 MG Tablet PO (21:17)
[2022-05-16] MEDS: Morphine 2 MG/ML Syringe IV (21:24)
[2022-05-17 02:00] VITALS: BP 128/74; PULSE 97; RESP 16; TEMP 36.6; O2SAT 95
[2022-05-17 05:38] LABS: Absolute Lymphocyte Count 1.17 X10^3/uL (0.83-4.51); Absolute Neutrophil Count 13.3 X10^3/uL (2.0-7.7); Basophil# 0.03 X10^3/uL; Basophil% 0.2 % (0-1); Eosinophil# 0.02 X10^3/uL; Eosinophils% 0.1 % (0-5); Hematocrit 38.1 % (40-54); Lymphocyte # 1.17 X10^3/ul (0.83-4.51); Lymphocyte % 7.5 % (19-41); Mean Corp Hgb Conc 34.1 g/dL (32-36); Mean Corpuscular Hgb 32.7 pg (27.0-32.0); Mean Platelet Vol. 9.1 fl (6.2-12.0); Monocyte# 0.87 X10^3/uL; Monocyte% 5.6 % (0-10); NRBC Flagged by Analyzer 0 % (0-5); Neutrophil # 13.34 X10^3/uL (2.7-7.7); Platelet Count 256 K/mm3 (150-450); RBC Distribution Width CV 12.8 % (11.6-14.6); RBC Distribution Width SD 45.5 fl (35.1-43.9); Red Blood Count 3.97 M/mm3 (4.6-6.2); White Blood Count 15.5 K/mm3 (4.4-11.0)
[2022-05-17 06:00] LABS: AST(SGOT) 13 U/L (15-37); Alanine Aminotransfer ALT/SGPT 23 U/L (16-61); Alkaline Phosphatase 43 U/L (45-117); Anion Gap 4 (5-15); BUN 16 mg/dL (7-18); BUN/Creat Ratio 15.4 RATIO (10-20); Calcium,Total 8.5 mg/dL (8.5-10.1); Chloride 101 mmol/L (98-107); Creatinine, Serum 1.04 mg/dL (0.70-1.30); EST Glomerular Filtration Rate 75 mL/min (>60); Est Glom Filt Rate - Afr Amer 91 mL/min (>60); Estimated Creatinine Clearance 68.24 ml/min; Globulin 2.9 g/dL (2.2-4.2); Glucose 129 mg/dL (74-106); Potassium 3.9 mmol/L (3.5-5.1); Protein, Total 5.9 g/dL (6.4-8.2); Sodium Level 135 mmol/L (136-145)
[2022-05-17 06:09] VITALS: BP 130/75; PULSE 98; RESP 18; TEMP 36.6; O2SAT 95
[2022-05-17 07:24] VITALS: O2SAT 92
[2022-05-17 08:18] LABS: Hemoglobin A1c 5.9 % (3.8-5.6)
[2022-05-17] MEDS: Ensure Surgery 237 ML LIQUID PO ×2 (08:40→11:57)
[2022-05-17] MEDS: Acetaminophen 500 MG Tablet 1000 MG PO ×2 (08:41→16:31)
[2022-05-17] MEDS: DULoxetine Hcl 60 MG Capsule PO (08:42)
[2022-05-17] MEDS: Losartan Potassium 50 MG Tablet PO (08:42)
[2022-05-17] MEDS: hydroCHLOROthiazide 12.5mg 12.5 MG PO (08:42)
[2022-05-17 08:57] VITALS: BP 115/67; PULSE 62; RESP 16; TEMP 37.1; O2SAT 92
[2022-05-17] MEDS: oxyCODONE 5 MG Tablet PO ×2 (11:56→16:31)
--- NOTE | 2022-05-17 12:05 | CASEMGMT ---
SYD TOWNSEND Assessment: Face to Face with pt for initial transition planning/care coordination assessment. SYD TOWNSEND introduced self and role at [facility], pt voices understanding and consents to assessment. Pt in bed. Appears to be in no distress. Pt is A/O and answers all questions appropriately at this time. Care providers, pharmacy, and demographics verified/updated. Admitting Dx: Lumbar Laminectomy L3-4, RT. PCP: Wallace Thapa. Specialists: Romina Flores. Preferred Pharmacy: [facility]. Insurance: [facility]. Prescription Benefit: Yes. LW/HPOA: Pt states a LW/HPOA is in place with being HPOA. Advised LW/HPOA is not on file. Pt is aware that paperwork can be scanned to file. LNOK: Jessica Manley, . Living Arrangements: Pt lives with in one story home with two or three steps to enter. A rail is in place. Pt denied any issues navigating the stairs. Pt reports being I in ADLs. Transportation: Pt drives self and denies concerns with transportation. is able to assist if needed. DME/HHC/SNF: Pt reports access to the following at home: cane, walker, wheelchair, raised toilet seat, shower chair, and grab bars. Pt denies using all the DME but has it if needed. Pt has a Cpap machine at home. Pt denies any oxygen at home. Pt reports HHC 22 years ago for therapy. Pt denies any SNF stays. Pt states no concerns with going home at time of dc. Pt states no further concerns/needs. CM to follow. Advised pt to ask CM if any further question/concerns/needs arise, voices understanding. Pt Goal: Home. No needs. Pt denies any therapy has been set up and does not feel its needed. Plan: TBD. ? ? ?
--- NOTE | 2022-05-17 13:23 | DCINST_ITS ---
Discharge Instructions Activity May shower in (days): 5 May resume sexual activity in: 4-6 weeks Weight Bearing Status: Full weight bearing Lifting Restrictions: 20# Follow Up Care Test Results: Test results from this visit will be discussed in further detail at your follow- up appointment, if applicable. Discharge Plan Admission Admit Date/Time: 05/16/22 11:50 Primary Reason for Your Visit: back surgery Attending Provider: Brendon Flores Primary Care Provider: Wallace Thapa Consulting Providers: Edwin Lam Mark Discharge Orders/Prescriptions Prescriptions: No Action celecoxib 100 mg capsule 100 mg PO DAILY PRN PRN (Reason: Pain) aspirin 81 mg tablet 81 mg PO DAILY duloxetine 60 MG capsule,delayed release(DR/EC) 60 mg PO DAILY atorvastatin 10 MG tablet 10 mg PO QHS hydrochlorothiazide 12.5 mg capsule 12.5 mg PO DAILY losartan 100 mg tablet 50 mg PO DAILY Other Ambulatory Orders: 12 Lead EKG (Routine) Timeframe: 20220331 Location: None Selected Ordered By: Dr. Brendon Flores Referrals / Follow Up: Wallace Thapa MD [Primary Care Provider] - Disposition Disposition (needs filled in before D/C Order can be placed): Home, Self Care
--- NOTE | 2022-05-17 13:24 | DS.PCM_ITS ---
Providers Date of Admission: 05/16/22 Primary Care Physician: Dr. Wallace Thapa MD Attending Physician: This is diss charge summary on Lee Manley. This patient was admitted yesterday 16 May. Yesterday morning he underwent a two-level decompression including L4-5 laminae on the right side and a complete decompression at L3-4. Today he reports that his leg pain is all gone. His back pain is tolerable. I change the dressing today remove the drain. The incision is dry and healing well. He was given postop laminectomy protocol regarding his activities at home. He already has his pain medicine at the house. We will make sure he keeps his appointment to see me a week from Sunday. He is discharged. Consultations 05/16/22 12:16 Consult: Hospitalist Routine Consulting Provider: Edwin Lam Reason for Consult: Medical Management EMERGENT Consult: No MD Notified: Yes Date Notified: 05/16/22 Time Notified: 19:23 Method of Notification: Text Reason For Visit: LUMBAR LAMINECTOMY L3-4, RT Diagnosis Discharge Diagnosis (1) HNP (herniated nucleus pulposus), lumbar: Status: Acute Code(s): M51.26 - Other intervertebral disc displacement, lumbar region (2) Spinal stenosis of lumbar region with radiculopathy: Status: Acute Code(s): M48.061 - Spinal stenosis, lumbar region without neurogenic claudication; M54.16 - Radiculopathy, lumbar region Medications at Discharge Home Medications duloxetine 60 mg capsule,delayed release 60 mg PO DAILY pain 05/23/13 atorvastatin 10 mg tablet 10 mg PO QHS cholesterol 04/26/17 celecoxib 100 mg capsule 100 mg PO DAILY PRN PRN Pain 06/16/20 aspirin 81 mg tablet 81 mg PO DAILY 04/11/22 hydrochlorothiazide 12.5 mg capsule 12.5 mg PO DAILY 05/03/22 losartan 100 mg tablet 50 mg PO DAILY 05/03/22 Weight / BMI Weight Weight: 283 lb 8.231 oz Body Mass Index (BMI) 40.6 ABG / Lab / Microbiology Data Result Diagrams: 05/17/22 05:28 05/17/22 05:28 Laboratory: Laboratory Results - last 24 hr 05/17/22 05:28: WBC 15.5 H, RBC 3.97 L, Hgb 13.0, Hct 38.1 L, MCV 96.0 H, MCH 32.7 H, MCHC 34.1, RDW Std Deviation 45.5 H, RDW Coeff of Tramaine 12.8, Plt Count 256, MPV 9.1, Immature Gran % (Auto) 0.600, Neut % (Auto) 86.0 H, Lymph % (Auto) 7.5 L, Josephine % (Auto) 5.6, Eos % (Auto) 0.1, Baso % (Auto) 0.2, Absolute Neuts (auto) 13.3 H, Absolute Lymphs (auto) 1.17, Nucleated RBC % 0 05/17/22 05:28: Sodium 135 L, Potassium 3.9, Chloride 101, Carbon Dioxide 30.0, Anion Gap 4 L, BUN 16, Creatinine 1.04, Estim Creat Clear Calc 68.24, Est GFR (MDRD) Af Amer 91, Est GFR (MDRD) Non-Af 75, BUN/Creatinine Ratio 15.4, Glucose 129 H, Calcium 8.5, Total Bilirubin 0.60, AST 13 L, ALT 23, Alkaline Phosphatase 43 L, Total Protein 5.9 L, Albumin 3.0 L, Globulin 2.9, Albumin/Globulin Ratio 1.0 05/17/22 05:28: Hemoglobin A1c 5.9 H Microbiology: Microbiology 03/31/22 08:43 Swab (Method) Nasal Screen MRSA/MSSA - Final Radiography Diagnostic Testing: Radiology Impression Spine X-Ray 05/16/22 08:45 IMPRESSION: As above. Electronically Signed: Bola Kimo, at 14:50 EST , D/C Instructions May shower in (days): 5 May resume sexual activity in: 4-6 weeks Weight Bearing Status: Full weight bearing Meaningful Use Info Meaningful Use Diagnoses (Choose all that apply): None applicable Discharge Plan Admission Admit Date/Time: 05/16/22 11:50 Primary Reason for Your Visit: back surgery Attending Provider: Brendon Flores Primary Care Provider: Wallace Thapa Consulting Providers: Edwin Lam Mark Discharge Orders/Prescriptions Prescriptions: No Action celecoxib 100 mg capsule 100 mg PO DAILY PRN PRN (Reason: Pain) aspirin 81 mg tablet 81 mg PO DAILY duloxetine 60 MG capsule,delayed release(DR/EC) 60 mg PO DAILY atorvastatin 10 MG tablet 10 mg PO QHS hydrochlorothiazide 12.5 mg capsule 12.5 mg PO DAILY losartan 100 mg tablet 50 mg PO DAILY Other Ambulatory Orders: 12 Lead EKG (Routine) Timeframe: 20220331 Location: None Selected Ordered By: Dr. Brendon Flores Referrals / Follow Up: Wallace Thapa MD [Primary Care Provider] - Disposition Disposition (needs filled in before D/C Order can be placed): Home, Self Care
== END 2022-05-17 16:57 | disposition home or self-care (01) ==
LOC: SDC 17:07 → MS3 05-17 07:07
PROVIDERS: Anesthesiology; Family Medicine; Admitting Provider Orthopaedic Surgery; PCP Family Medicine; Referring Provider Orthopaedic Surgery; Visit Provider Orthopaedic Surgery
PROC: (CPT 63030; principal; 2022-05-16 07:00)
DX: M51.16 Intervertebral disc disorders with radiculopathy, lumbar region (principal); M47.26 Other spondylosis with radiculopathy, lumbar region; M48.061 Spinal stenosis, lumbar region without neurogenic claudication; F17.200 Nicotine dependence, unspecified, uncomplicated; Z79.899 Other long term (current) drug therapy; I10 Essential (primary) hypertension; G47.33 Obstructive sleep apnea (adult) (pediatric); Z79.82 Long term (current) use of aspirin; E78.00 Pure hypercholesterolemia, unspecified
CPT/HCPCS: 63047; 63030; 36415; 71046; 72020; 80048; 80053; 81001; 82962; 83036; 83735; 85025; 86703; 86706; 86708; 86803; 87081; 88304; 93005; 94762; 96361; 96365; 96366; 96375; 97162; 99218; J7120; G0378; J2405; J3475

== ENCOUNTER 2022-06-15 18:55 | Inpatient (IN) | payer MEDICARE, SELFPAY ==
[2022-06-15] VITALS (7 sets, daily range): BP systolic 113–164; BP diastolic 64–120; PULSE 73–137; RESP 20–28; TEMP 36.1–36.6; O2SAT 92–98; BMI 42.5
--- NOTE | 2022-06-15 19:23 | EKG12_ITS ---
Test Reason : DYSRHYTHMIA Blood Pressure : / mmHG Vent. Rate : 139 BPM Atrial Rate : 122 BPM P-R Int : 000 ms QRS Dur : 086 ms QT Int : 290 ms P-R-T Axes : 000 058 017 degrees QTc Int : 441 ms Atrial fibrillation with premature ventricular or aberrantly conducted complexes Septal infarct , age undetermined Abnormal ECG Confirmed by HOMERO SLOAN, RAGHAV ([id number]), social media editor WAGNER GUEVARA ([id number]) on 06/19/2022 9:15:00 AM Referred By: ALICE Confirmed By:RAGHAV VALENTIN MD
--- NOTE | 2022-06-15 19:23 | CT_ITS ---
ACR Level 3 findings have been noted. An addendum which confirms receipt of the report will follow. INDICATION: PE EXAMINATION: CTA Chest WO/W Contrast Injection TECHNIQUE: Helically acquired images were obtained of the chest following administration of IV contrast. A radiation dose optimization technique was used for this scan. 3D postprocessing images including MIPS were reviewed. IV Contrast dosage and agent: IV 100mL [id number] COMPARISON: None. FINDINGS: Lungs: Bibasilar atelectasis. Left lingular and basilar consolidation versus atelectasis. 1.1 cm pulmonary nodule in the right lower lobe (image 117, series 2). Mediastinum: The cardiomediastinal silhouette is not enlarged. No mediastinal, hilar or axillary adenopathy. Mild aortic arch and coronary artery calcifications. Questionable small volume nonocclusive clot seen in the lingular and left lower lobe subsegmental pulmonary arteries. Pleura: Unremarkable Bones/Soft tissues: There are diffuse degenerative changes of the spine. Upper abdomen: No visualized abnormalities in the upper abdomen. CT/CTA Chest W/WO Contrast IMPRESSION: Questionable small volume nonocclusive acute pulmonary emboli in the lingular and left lower lobe subsegmental pulmonary arteries. No evidence of right heart strain. Left lingular and basilar consolidation versus atelectasis. 1.1 cm pulmonary nodule in the right lower lobe. Recommend follow-up Chest CT in 3 months and/or PET/CT. Electronically Signed: Nabeel Gómez MD at 22:07 [facility] ,
--- NOTE | 2022-06-15 19:49 | EDS_ITS ---
HPI History of Present Illness Chief Complaint: Shortness of Breath Informant: patient Onset/Context/Timing Onset: Weeks (1) Context: gradual Timing: Continuous Quality: Positive for Dyspnea on exertion Worsened by: Exertion Relieved by: Nothing Associated Symptoms cough; Negative for rhinorrhea, post nasal drip, ear pain, fever, sore throat, chills, sweats, clear sputum, white sputum, yellow sputum or green sputum Chest Pain: Positive for None Narrative Narrative: Patient presents with shortness of breath has been getting worse over the past week. Patient states it is gradually gotten worse. Patient states his breathing is worse with any exertion. Patient admits to a cough but denies any sputum production. Patient denies any fevers or chills. Patient denies any chest pain. Patient states he called his primary care physician to schedule an appointment and was referred to the emergency department because of his recent surgery. PE Risk Factors: Positive for Recent surgery; Negative for Cancer, OCP + Smoking + > 35, Prior DVT or PE, Recent immobilization or Recent travel [facility] Medical History (Updated 06/15/22 @ 22:[address] Kacie Joshi MD) DDD (degenerative disc disease), lumbar High cholesterol HTN (hypertension) Marijuana use Morbid obesity SYMONE treated with BiPAP Wears dentures Wears glasses Wears hearing aid Home Medications duloxetine 60 mg capsule,delayed release 60 mg PO DAILY pain 05/23/13 [History Last Taken 05/15/22] atorvastatin 10 mg tablet 10 mg PO QHS cholesterol 04/26/17 [History Last Taken 05/15/22] celecoxib 100 mg capsule 100 mg PO DAILY PRN PRN Pain 06/16/20 [History Last Taken 05/09/22] aspirin 81 mg tablet 81 mg PO DAILY 04/11/22 [History Last Taken 05/09/22] hydrochlorothiazide 12.5 mg capsule 12.5 mg PO DAILY 05/03/22 [History Last Taken 05/15/22] losartan 100 mg tablet 50 mg PO DAILY 05/03/22 [History Last Taken 05/16/22] Allergy/AdvReac Type Severity Reaction Status Date / Time No Known Allergies Allergy Verified 06/15/22 18:57 Surgical History (Updated 06/15/22 @ 22:[address] Kacie Joshi MD) History of appendectomy History of bilateral carpal tunnel release History of bilateral knee replacement Hx of foot surgery S/P laminectomy Social History (Updated 06/15/22 @ 22:[address] Kacie Joshi MD) household members: spouse Smoking Status: Never smoker alcohol intake: current alcohol intake frequency: a few times a month substance use type: marijuana ROS ROS ED Constitutional Constitutional ED: Denies chills or fever(s) Eyes Eyes: Denies blurry vision or change in vision ENT ENT ED: Reports rhinorrhea; Denies sore throat Cardiovascular Cardiovascular: Denies chest pain or palpitations Respiratory/Chest Respiratory/Chest: Reports cough and dyspnea Gastrointestinal Gastrointestinal: Denies nausea or vomiting Genitourinary Genitourinary ED: Denies dysuria or hematuria Musculoskeletal Musculoskeletal: Denies back pain or neck pain Integumentary Denies abscess or rash Neurologic Neurologic: Denies headache(s) or weakness Allergic/Immunologic Allergic/Immunologic ED: Denies mouth swelling or urticaria EXAM Physical Exam Const Vital Signs: 06/15/22 18:57 06/15/22 18:55 06/15/22 19:07 Temperature 96.9 F L Temperature Source Temporal Pulse Rate 73 137 H Respiratory Rate 22 H 22 H Respiratory Effort Short of Breath Respiratory Depth Normal Respiratory Pattern Tachypnea Blood Pressure 164/120 H Blood Pressure Mean 134 Pulse Ox 98 Oxygen Delivery Method Room Air Room Air 06/15/22 20:20 06/15/22 20:34 06/15/22 21:18 Temperature Temperature Source Pulse Rate 112 H 95 97 Respiratory Rate 20 H 21 H 20 H Respiratory Effort Respiratory Depth Respiratory Pattern Blood Pressure 113/66 134/84 H 147/64 H Blood Pressure Mean 81 100 91 Pulse Ox 92 94 96 Oxygen Delivery Method Room Air Room Air Positive well nourished, well developed and obese General Appearance ED: well developed and NAD Nutritional Appearance: obese HEENT Reports moist mucous membranes Neck supple and no JVD Resp normal respiratory effort and clear to auscultation bilaterally Cardio Rate: tachycardic Rhythm: abnormal rhythm irregularly irregular GI normal to inspection, nondistended, normoactive bowel sounds and non-tender Palpation: soft Extremity normal to inspection General Extremety ED: Negative for edema or tenderness General Extremity: Negative for edema Neuro oriented x3, CN's II-XII intact bilaterally and no sensory deficits noted Sensorium / Orientation: alert Motor Exam: strength 5/5 throughout Psych mental status grossly normal Skin no rashes or lesions noted MDM MDM MDM Narrative Medical decision making narrative: Differential diagnosis includes pulmonary embolism, new onset atrial fib rillation with rapid ventricular response, cardiac ischemia, pneumonia, pneumothorax, and congestive heart failure. EKG will be obtained to assess for cardiac dysrhythmia and cardiac ischemia. CBC will be obtained to assess for leukocytosis and anemia. Basic metabolic profile will be obtained to assess for electrolyte abnormality and renal function. High-sensitivity troponin will be obtained to assess for cardiac ischemia. CTA of the chest will be obtained to assess for pneumonia and pulmonary embolism. Lab Data Attestation: I reviewed the patient's lab results. Lab results narrative: CBC was reviewed and showed a mild leukocytosis of 13.9. (Patient has been on prednisone) PT with INR and PTT were reviewed and were within normal limits. Basic metabolic profile was reviewed and was essentially within normal limits. High-sensitivity troponin was reviewed and was normal. Labs: Laboratory Results - last 24 hr 06/15/22 06/15/22 06/15/22 20:07 20:07 20:07 WBC 13.9 H RBC 4.62 Hgb 14.9 Hct 43.8 MCV 94.8 H MCH 32.3 H MCHC 34.0 RDW Std Deviation 46.3 H RDW Coeff of Tramaine 13.3 Plt Count 341 MPV 9.2 Immature Gran % (Auto) 0.500 Neut % (Auto) 77.7 H Lymph % (Auto) 13.0 L Shannon % (Auto) 7.8 Eos % (Auto) 0.4 Baso % (Auto) 0.6 Absolute Neuts (auto) 10.8 H Absolute Lymphs (auto) 1.81 Nucleated RBC % 0 PT 13.5 INR 1.1 APTT 25.2 Sodium 140 Potassium 4.3 Chloride 108 H Carbon Dioxide 25.0 Anion Gap 7 BUN 21 H Creatinine 1.05 Estim Creat Clear Calc 65.46 Est GFR (MDRD) Af Amer 90 Est GFR (MDRD) Non-Af 74 BUN/Creatinine Ratio 20.0 Glucose 105 Calcium 8.9 Troponin I High Sens 12 Radiography Diagnostic Testing: Clinical Impression(s) from Imaging Studies Chest CTA 06/15/22 19:23 IMPRESSION: Questionable small volume nonocclusive acute pulmonary emboli in the lingular and left lower lobe subsegmental pulmonary arteries. No evidence of right heart strain. Left lingular and basilar consolidation versus atelectasis. 1.1 cm pulmonary nodule in the right lower lobe. Recommend follow-up Chest CT in 3 months and/or PET/CT. Electronically Signed: Nabeel Gómez MD at 22:07 EST , ADDENDUM: 06/15/22 2224 IMPRESSION: Questionable small volume nonocclusive acute pulmonary emboli in the lingular and left lower lobe subsegmental pulmonary arteries. No evidence of right heart strain. Left lingular and basilar consolidation versus atelectasis. 1.1 cm pulmonary nodule in the right lower lobe. Recommend follow-up Chest CT in 3 months and/or PET/CT. N.B. : Koko Paulson DO, confirmed on 06/15/2022 22:17:35 (ET) that the healthcare facility has received the radiology report. Electronically Signed: Nabeel Gómez MD at 22:07 EST , CTA of the chest was reviewed. On my independent interpretation, there may be small pulmonary emboli in the lingula and left lower lobe. There is left lingular and basilar consolidation versus atelectasis. Radiologist also reviewed the CT scan and did not find any evidence of right heart strain. There is also a 1.1 cm pulmonary nodule in the right lower lobe. EKG Initial EKG: Attestation: I personally reviewed and interpreted this EKG as follows: Interpretation: Atrial Fibrillation (139) and Non-Specific ST Changes Comments: EKG was obtained. On my interpretation, there is atrial fibrillation with a rate of 139. QRS interval was within normal limits. QTc interval was normal. [place] was normal. There are nonspecific ST-T wave changes. Compared to EKG from 03/31/2022, the atrial fibrillation is new. There are no new ST or T wave changes. Prior EKG tracings: available for review Prior: Changed (The atrial fibrillation is new compared to previous EKG dated 03/31/2022.) Treatment and Re-Evaluation Narrative: Patient is feeling better on reevaluation. Patient was advised of his findings. Patient was given a dose of Levaquin here. Case was discussed with the hospitalist. She will admit the patient to PCU. She recommended starting the patient on Lovenox. This was ordered. I have a page to Dr. Flores to let him know of the patient's need for admission and anticoagulation. I am currently awaiting his call back. 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
[2022-06-15] MEDS: dilTIAZem 25 MG/5 ML Vial IV BOLUS (20:14)
[2022-06-15 20:15] LABS: Absolute Lymphocyte Count 1.81 X10^3/uL (0.83-4.51); Absolute Neutrophil Count 10.8 X10^3/uL (2.0-7.7); Basophil# 0.08 X10^3/uL; Basophil% 0.6 % (0-1); Eosinophil# 0.05 X10^3/uL; Eosinophils% 0.4 % (0-5); Hematocrit 43.8 % (40-54); Hemoglobin 14.9 g/dL (13.0-16.5); Lymphocyte # 1.81 X10^3/ul (0.83-4.51); Mean Corpuscular Hgb 32.3 pg (27.0-32.0); Mean Corpuscular Volume 94.8 fL (80-94); Mean Platelet Vol. 9.2 fl (6.2-12.0); Monocyte# 1.09 X10^3/uL; Monocyte% 7.8 % (0-10); NRBC Flagged by Analyzer 0 % (0-5); Neutrophil # 10.81 X10^3/uL (2.7-7.7); Neutrophil % 77.7 % (47-70); Platelet Count 341 K/mm3 (150-450); RBC Distribution Width CV 13.3 % (11.6-14.6); RBC Distribution Width SD 46.3 fl (35.1-43.9); Red Blood Count 4.62 M/mm3 (4.6-6.2); White Blood Count 13.9 K/mm3 (4.4-11.0)
[2022-06-15 20:24] LABS: International Normalized Ratio 1.1; Partial Thromboplast Time 25.2 Seconds (24.1-36.2); Prothrombin Time (Protime)PT. 13.5 SECONDS (11.7-14.9)
[2022-06-15 20:44] LABS: Anion Gap 7 (5-15); BUN 21 mg/dL (7-18); Calcium,Total 8.9 mg/dL (8.5-10.1); Chloride 108 mmol/L (98-107); Creatinine, Serum 1.05 mg/dL (0.70-1.30); EST Glomerular Filtration Rate 74 mL/min (>60); Est Glom Filt Rate - Afr Amer 90 mL/min (>60); Estimated Creatinine Clearance 65.46 ml/min; Glucose 105 mg/dL (74-106); Potassium 4.3 mmol/L (3.5-5.1); Sodium Level 140 mmol/L (136-145); Troponin-I HS 12 pg/mL (3.0-78.0)
--- NOTE | 2022-06-15 22:30 | PCM.HP.STD ---
HPI - General General Date of Admission: 06/15/22 Date of Service: 06/15/22 Chief Complaint: Dyspnea. HPI Narrative The patient is a 71 y/o M w/ PMHx: Morbid Obesity, HTN, HLD, SYMONE on BIPAP, Tobacco use, Chronic cannabis usage, recent 05/16/22 lumbar laminectomy L4-5 on the right with decompression L3-4 secondary to herniated disc L4-5 on the right and spinal stenosis L3-[address] Flores who now presents to the [facility] ED on 06/15/22 with history of progressively worsening dyspnea, worse with exertion with mild cough however nonproductive with no recent rhinorrhea or congestion or any URI type symptoms or fevers or chills noted over the last week with PCP referral to the ED secondary to concern for recent surgery and possible pulmonary emboli as etiology. Patient did note denies any chest discomfort. He notes that since his surgery he has been active and walking daily and recently 1 week prior rejoined his gym. He denies any sensation of palpitations or racing heart. Work-up in the ED included T96.5, heart rate initially 137 with most recent repeat 73, BP 164/120, respiratory rate 22, 98% on room air, CBC with WC 13.9, hemoglobin 14.9, platelet 341 with left shift, unremarkable coags, BMP not marked aside chloride 108, BUN/10 and 21/1.05, troponin 12, CTPA with questionable small volume nonocclusive acute pulmonary emboli in the lingular and left lower lobe of the subsegmental pulmonary arteries, no evidence of any heart strain, left lingular and basilar consolidation versus atelectasis, 1.1 cm pulmonary nodule right lower lobe, EKG initially with atrial fibrillation with RVR. In the ED patient administered diltiazem 25 mg IV x1 secondary to initial significant tachycardia with new onset atrial fibrillation with RVR which did temporarily improve down to 73, current heart rate 97. ED physician noted intention to administer also IV levaquin and therapeutic lovenox but awaiting call back from Dr. Flores given surgery ~ 1 month prior. Pending COVID and influenza rapid antigen testing upon evaluation. [facility] Medical History (Updated 06/15/22 @ 22:[address] Kacie Joshi MD) DDD (degenerative disc disease), lumbar High cholesterol HTN (hypertension) Marijuana use Morbid obesity SYMONE treated with BiPAP Wears dentures Wears glasses Wears hearing aid Home Medications duloxetine 60 mg capsule,delayed release 60 mg PO DAILY pain 05/23/13 [History Last Taken 05/15/22] atorvastatin 10 mg tablet 10 mg PO QHS cholesterol 04/26/17 [History Last Taken 05/15/22] celecoxib 100 mg capsule 100 mg PO DAILY PRN PRN Pain 06/16/20 [History Last Taken 05/09/22] aspirin 81 mg tablet 81 mg PO DAILY 04/11/22 [History Last Taken 05/09/22] hydrochlorothiazide 12.5 mg capsule 12.5 mg PO DAILY 05/03/22 [History Last Taken 05/15/22] losartan 100 mg tablet 50 mg PO DAILY 05/03/22 [History Last Taken 05/16/22] Allergy/AdvReac Type Severity Reaction Status Date / Time No Known Allergies Allergy Verified 06/15/22 18:57 Family History (Updated 06/15/22 @ 23:[address] Kacie Joshi MD) Mother VTE (venous thromboembolism) Unclear if provoked. Father Cardiomyopathy Heart disease Hypertension Surgical History (Updated 06/15/22 @ 22:[address] Kacie Joshi MD) History of appendectomy History of bilateral carpal tunnel release History of bilateral knee replacement Hx of foot surgery S/P laminectomy Social History (Updated 06/15/22 @ 22:[address] Kacie Joshi MD) household members: spouse Smoking Status: Never smoker alcohol intake: current alcohol intake frequency: a few times a month substance use type: marijuana ROS ROS Narrative Admission Review of Systems: CONSTITUTIONAL: No weight loss, fever, chills, + weakness or fatigue. HEENT: Eyes: No visual loss, blurred vision, double vision or yellow sclerae. Ears, Nose, Throat: No hearing loss, sneezing, congestion, runny nose or sore throat. SKIN: + Status post prior laminectomy with healing incision with no drainage, chronic urticaria. CARDIOVASCULAR: No chest pain, chest pressure or chest discomfort, palpitations, edema, orthopnea, syncopal events. RESPIRATORY: + shortness of breath, cough without marked sputum, No wheezing, hemoptysis. GASTROINTESTINAL: No anorexia, nausea, vomiting or diarrhea, abdominal pain, melena, BRBPR. GENITOURINARY: No dysuria, frequency, urgency or retention. NEUROLOGICAL: No headache, dizziness, syncope, paralysis, ataxia, numbness or tingling in the extremities, focal weakness, change in bowel or bladder control, seizure. MUSCULOSKELETAL: + muscle, back pain, joint pain or stiffness. HEMATOLOGIC: No anemia, bleeding or bruising. LYMPHATICS: No enlarged nodes. No history of splenectomy. PSYCHIATRIC: + history of depression or anxiety. ENDOCRINOLOGIC: No reports of sweating, cold or heat intolerance. No polyuria or polydipsia. ALLERGIES: No history of asthma, hives, eczema or rhinitis. Vital Signs Vital Signs Vital Signs: 06/15/22 18:57 06/15/22 18:55 06/15/22 19:07 Temperature 96.9 F L Temperature Source Temporal Pulse Rate 73 137 H Respiratory Rate 22 H 22 H Respiratory Effort Short of Breath Respiratory Depth Normal Respiratory Pattern Tachypnea Blood Pressure 164/120 H Blood Pressure Mean 134 Pulse Ox 98 Oxygen Delivery Method Room Air Room Air 06/15/22 20:20 06/15/22 20:34 06/15/22 21:18 Temperature Temperature Source Pulse Rate 112 H 95 97 Respiratory Rate 20 H 21 H 20 H Respiratory Effort Respiratory Depth Respiratory Pattern Blood Pressure 113/66 134/84 H 147/64 H Blood Pressure Mean 81 100 91 Pulse Ox 92 94 96 Oxygen Delivery Method Room Air Room Air Weight Weight: 288 lb 2.307 oz Body Mass Index (BMI) 42.5 Physical Exam Narrative Physical Examination: General: Awake, alert, oriented x 3 and cooperative, seated upright in ED bed, mildly fatigued otherwise no acute distress. Skin: Normal color, normal turgor, no icterus, no cyanosis except status post laminectomy proximally 1 month prior, incisions well-healed, several scratches and abrasions from unfortunately itching himself with the urticaria especially on the thorax. HEENT: AT/NC, EOMI, PERRLA, MMM, no carotid bruits or JVD noted; however, thickened neck makes evaluation difficult. Lungs: Diminished, greater bases, no obvious evidence of distress, appropriate effort, no rales, ronchi or wheezing. Heart: Irregular, irregular; no gallop, rub audible. Abdomen: Soft, morbidly obese, NTTP, difficult to assess distention given habitus, distant normal BS, no obvious evidence of HSM however habitus makes evaluation difficult. Extremities: No cyanosis, clubbing, or edema. Neurological: Patient awake, alert, oriented as noted, cognitive function intact; pupils equally reactive to light and accommodation, cranial nerves II-XII grossly normal, moving all 4 extremities, improved since prior evaluation as out from OR x1 month, strength moderately globally decreased given acute presentation complaints. Psychiatric: Affect appears fatigued, no acute evidence of depressive or anxiety feelings. Results Lab / Micro Data Result Diagrams: 06/15/22 20:07 06/15/22 20:07 Labs: Laboratory Results - last 24 hr 06/15/22 20:07: WBC 13.9 H, RBC 4.62, Hgb 14.9, Hct 43.8, MCV 94.8 H, MCH 32.3 H, MCHC 34.0, RDW Std Deviation 46.3 H, RDW Coeff of Tramaine 13.3, Plt Count 341, MPV 9.2, Immature Gran % (Auto) 0.500, Neut % (Auto) 77.7 H, Lymph % (Auto) 13.0 L, Marshall % (Auto) 7.8, Eos % (Auto) 0.4, Baso % (Auto) 0.6, Absolute Neuts (auto) 10.8 H, Absolute Lymphs (auto) 1.81, Nucleated RBC % 0 06/15/22 20:07: PT 13.5, INR 1.1, APTT 25.2 06/15/22 20:07: Sodium 140, Potassium 4.3, Chloride 108 H, Carbon Dioxide 25.0, Anion Gap 7, BUN 21 H, Creatinine 1.05, Estim Creat Clear Calc 65.46, Est GFR (MDRD) Af Amer 90, Est GFR (MDRD) Non-Af 74, BUN/Creatinine Ratio 20.0, Glucose 105, Calcium 8.9, Troponin I High Sens 12 Radiology Impression Chest CTA 06/15/22 19:23 IMPRESSION: Questionable small volume nonocclusive acute pulmonary emboli in the lingular and left lower lobe subsegmental pulmonary arteries. No evidence of right heart strain. Left lingular and basilar consolidation versus atelectasis. 1.1 cm pulmonary nodule in the right lower lobe. Recommend follow-up Chest CT in 3 months and/or PET/CT. Electronically Signed: Nabeel Gómez MD at 22:07 EST , ADDENDUM: 06/15/224 IMPRESSION: Questionable small volume nonocclusive acute pulmonary emboli in the lingular and left lower lobe subsegmental pulmonary arteries. No evidence of right heart strain. Left lingular and basilar consolidation versus atelectasis. 1.1 cm pulmonary nodule in the right lower lobe. Recommend follow-up Chest CT in 3 months and/or PET/CT. N.B. : Koko Paulson DO, confirmed on 06/15/2022 22:17:35 (ET) that the healthcare facility has received the radiology report. Electronically Signed: Nabeel Gómez MD at 22:07 EST , Assessment & Plan Assessment/Plan (1) Atrial fibrillation, new onset: (2) Pulmonary embolism: (3) Pneumonia: PLAN: Plan The patient is a 71 y/o M w/ PMHx: Morbid Obesity, HTN, HLD, SYMONE on BIPAP, Tobacco use, Chronic cannabis usage, recent 05/16/22 lumbar laminectomy L4-5 on the right with decompression L3-4 secondary to herniated disc L4-5 on the right and spinal stenosis L3-[address] Flores who now presents to the [facility] ED on 06/15/22 with history of progressively worsening dyspnea, worse with exertion with mild cough however nonproductive with no recent rhinorrhea or congestion or any URI type symptoms or fevers or chills noted over the last week with PCP referral to the ED secondary to concern for recent surgery and possible pulmonary emboli as etiology. #1. Dyspnea secondary to questionable small volume nonocclusive acute pulmonary emboli in the lingular and left lower lobe subsegmental pulmonary arteries with possible atelectasis versus consolidation: ED evaluation with EKG with initially new onset atrial fibrillation with RVR with no acute evidence of ischemia, troponin 12, CTPA with questionable small volume nonocclusive acute pulmonary emboli in the lingular and left lower lobe of the subsegmental pulmonary arteries, no evidence of any heart strain, left lingular and basilar consolidation versus atelectasis, 1.1 cm pulmonary nodule right lower lobe. Recent history of prolonged immobility with recent back surgery as likely etiology. Will admit to PCU, maintain on cardiac telemetry, no obvious evidence of strain but given #2, will obtain ECHO, will continue therapeutic lovenox pending AM evaluation per CM/SW for cost of oral options, given patient mild WBC elevation and L shift with concurrent cough to be cautious will initiate PRN albuterol, maintain on IV Rocephin and Azithromycin, HOB, IS parameters w/ pending sputum cultures, full respiratory viral panel, COVID PCR, procalcitonin and urine antigens with de-escalation of abx therapy if no confirmation bacterial etiology. Would benefit from oxygenation ambulatory trial prior to consideration of discharge. As noted in history mother does have reported VTE history but unclear circumstances. #2. New Onset, Paroxsymal atrial fibrillation: EKG in ED w/ atrial fibrillation w/ RVR. Patient administered Cardizem bolus with improvement in ED. Will maintain on telemetry, obtain cardiac enzyme serial set, obtain magnesium level, obtain ECHO, obtain TSH level, continue therapeutic Lovenox as noted #1, will add moderate dose beta-kalia therapy. Pending response may consider cardiology involvement if necessary however given new onset atrial fibrillation in the setting of a PE after recent surgery likely etiology. As noted above #1 we will also obtain COVID PCR as certainly COVID would raise patient's risk of pulmonary emboli as well as atrial fibrillation in addition. #3. Incidental right lower lobe pulmonary nodule: CTPA with noted 1.1 cm pulmonary nodule in the right lower lobe with notable tobacco use history, will need to have follow-up CT chest in 3 months per PCP outpatient versus pulmonary medicine. #4. Hx Significant lumbar back pain with right lower extremity radiculopathy and canal stenosis s/p recent 05/16/22 Operative intervention: 05/16/2022 status post lumbar laminectomy L4-5 on the right and lumbar laminectomy decompression L3-[address] Flores, encourage frequent position changes, ongoing outpatient assessments and therapies as previously arranged. #5. Prediabetes mellitus: 04/2022 admission with noted hyperglycemia at that time, HgBA1c obtained 5.9%, will maintain on ADA diet, accu checks with ISS, encourage continued lifestyle and diet changes. #6. Hypertension: Continue home regimen including losartan, hydrochlorothiazide, PRN hydralazine. #7. Hyperlipidemia: We will continue patient on statin therapy. #8. Morbid Obesity: Weight loss and lifestyle changes encouraged. #9. Chronic Cannabis use: Encouraged cessation. #10. Chronic urticaria: Patient's prior surgery had taken himself off of his chronic low-dose steroids and remained off following for healing purposes. He recently in the last 3 days resumed his low-dose steroids but following lengthy discussion given initiation of anticoagulant therapy is willing to instead try low-dose hydroxyzine which he is never tried previously. If this is not successful then may necessitate restarting low-dose prednisone. #11. SYMONE: BiPAP nightly. #12. DVT prophylaxis: SCDs, therapeutic Lovenox as noted. Admission Evaluation Time spent evaluating chart, patient history, patient evaluation, care planning and discussion with specialists: 75 minutes. Charges/Coding Visit Charges Inpatient E&M: 26277 Init Hosp L3
[2022-06-15] MEDS: levoFLOXacin IV 750 MG/150 ML BAG 100 MG IV (23:03)
[2022-06-15 23:09] LABS: Magnesium 1.9 mg/dL (1.6-2.6)
[2022-06-15 23:42] LABS: Procalcitonin 0.06 ng/mL (0.00-0.09)
[2022-06-16] VITALS (14 sets, daily range): BP systolic 123–159; BP diastolic 76–119; PULSE 49–110; RESP 12–18; TEMP 36.4–37.1; O2SAT 93–97
[2022-06-16] MEDS: 0.9% Normal Saline 1,000 ML 100 ML IV (00:40)
[2022-06-16] MEDS: hydrOXYzine PAM 25 MG Capsule PO ×2 (00:41→23:29)
[2022-06-16] MEDS: Metoprolol Tartrate 25 MG Tablet PO ×3 (00:41→16:23)
[2022-06-16 01:20] LABS: Bedside Glucose 153 mg/dL (74-106)
[2022-06-16 01:32] LABS: Troponin-I HS 12 pg/mL (3.0-78.0)
[2022-06-16 04:10] LABS: Troponin-I HS 13 pg/mL (3.0-78.0)
--- NOTE | 2022-06-16 05:55 | ECHOCS_ITS ---
Reason For Study: AFIB Procedure This was a 2D Doppler, Color Flow transthoracic echocardiogram. The study was technically difficult. Contrast injection was performed. Exam performed portable in patient room. Left Ventricle Normal left ventricle. The estimated ejection fraction is 55-60 %. Right Ventricle Mildly dilated right ventricle. Mildly decreased right ventricular systolic function. Atria Normal left atrium. Normal right atrium. Mitral Valve The mitral valve is structurally normal. No prolapse or stenosis seen. No mitral valve insufficiency. Tricuspid Valve Normal tricuspid valve. No tricuspid valve insufficiency. Aortic Valve Normal aortic valve. Pulmonic Valve The pulmonic valve is not well visualized. Great Vessels Normal aortic root. Pericardium/Pleural No pericardial effusion. There is no pleural effusion. Medication Diluted definity 2ml given slow IV push to enhance endocardial definition. MMode/2D Measurements & Calculations LVIDd: 4.1 cm IVSd: 1.2 cm Ao root diam: 3.4 cm LVIDs: 2.6 cm LVPWd: 1.4 cm FS: 36.0 % LA dimension(2D): 3.6 cm Doppler Measurements & Calculations MV E max christian: 79.0 cm/sec Ao V2 max: 105.3 cm/sec LV V1 max: 101.9 cm/sec Ao max P.4 mmHg LV V1 max P.2 mmHg Ao V2 mean: 72.1 cm/sec LV V1 mean P.0 mmHg Ao mean P.5 mmHg LV V1 mean: 64.0 cm/sec Ao V2 VTI: 18.8 cm LV V1 VTI: 19.4 cm AV (velocity ratio): 1.0 PA V2 max: 118.4 cm/sec TR max christian: 226.5 cm/sec PA V2 mean: 82.0 cm/sec TR max P.5 mmHg ECHO/Echo Complete W/ Contrast Interpretation Summary The estimated ejection fraction is 55-60 %. Normal LV systolic function No significant valvular abnormalities Contrast echo/Definity used No previous echo to compare Ordering Physician: Kacie Joshi Referring Physician: MD Alanis Wallace Performed By: Dana Bruce RCS
[2022-06-16 06:48] LABS: Absolute Neutrophil Count 8.5 X10^3/uL (2.0-7.7); Basophil# 0.09 X10^3/uL; Basophil% 0.7 % (0-1); Eosinophil# 0.21 X10^3/uL; Eosinophils% 1.6 % (0-5); Hematocrit 43.2 % (40-54); Lymphocyte % 24.5 % (19-41); Mean Corp Hgb Conc 32.4 g/dL (32-36); Mean Corpuscular Hgb 31.5 pg (27.0-32.0); Mean Corpuscular Volume 97.3 fL (80-94); Mean Platelet Vol. 9.3 fl (6.2-12.0); Monocyte# 0.96 X10^3/uL; Monocyte% 7.4 % (0-10); NRBC Flagged by Analyzer 0 % (0-5); Neutrophil # 8.49 X10^3/uL (2.7-7.7); Platelet Count 317 K/mm3 (150-450); RBC Distribution Width CV 13.3 % (11.6-14.6); RBC Distribution Width SD 47.9 fl (35.1-43.9); Red Blood Count 4.44 M/mm3 (4.6-6.2); White Blood Count 13.1 K/mm3 (4.4-11.0)
[2022-06-16 06:55] LABS: Bedside Glucose 96 mg/dL (74-106)
--- NOTE | 2022-06-16 07:21 | PCM.PN.HOSP ---
Objective Data Objective Data Vital Signs: Vital Signs Temp Pulse Resp BP Pulse Ox O2 Del Method 97.6 F L 89 18 123/91 H 93 Room Air 06/16/22 06:58 06/16/22 06:58 06/16/22 06:58 06/16/22 06:58 06/16/22 06:58 06/16/22 06:58 Oxygen Delivery Method Room Air Weight: 288 lb 2.307 oz Body Mass Index (BMI) 42.5 Intake & Output: Intake and Output for Last 24 Hours 06/14/22 06/15/22 06/16/22 23:59 23:59 23:59 Intake Total 150 / 150 Balance 150 / 150 Lab / Micro Data Result Diagrams: 06/16/22 06:35 06/16/22 06:35 Labs: Laboratory Results - last 24 hr 06/15/22 20:07: WBC 13.9 H, RBC 4.62, Hgb 14.9, Hct 43.8, MCV 94.8 H, MCH 32.3 H, MCHC 34.0, RDW Std Deviation 46.3 H, RDW Coeff of Tramaine 13.3, Plt Count 341, MPV 9.2, Immature Gran % (Auto) 0.500, Neut % (Auto) 77.7 H, Lymph % (Auto) 13.0 L, [place] % (Auto) 7.8, Eos % (Auto) 0.4, Baso % (Auto) 0.6, Absolute Neuts (auto) 10.8 H, Absolute Lymphs (auto) 1.81, Nucleated RBC % 0 06/15/22 20:07: PT 13.5, INR 1.1, APTT 25.2 06/15/22 20:07: Sodium 140, Potassium 4.3, Chloride 108 H, Carbon Dioxide 25.0, Anion Gap 7, BUN 21 H, Creatinine 1.05, Estim Creat Clear Calc 65.46, Est GFR (MDRD) Af Amer 90, Est GFR (MDRD) Non-Af 74, BUN/Creatinine Ratio 20.0, Glucose 105, Calcium 8.9, Troponin I High Sens 12 06/15/22 20:07: Magnesium 1.9 06/15/22 22:58: Procalcitonin 0.06 06/15/22 22:58: COVID-19 ([place]) Not Detected 06/16/22 00:15: POC Glucose 153 H 06/16/22 01:05: Troponin I High Sens 12 06/16/22 03:45: Troponin I High Sens 13 06/16/22 06:35: WBC 13.1 H, RBC 4.44 L, Hgb 14.0, Hct 43.2, MCV 97.3 H, MCH 31.5, MCHC 32.4, RDW Std Deviation 47.9 H, RDW Coeff of Tramaine 13.3, Plt Count 317, MPV 9.3, Immature Gran % (Auto) 0.800, Neut % (Auto) 65.0, Lymph % (Auto) 24.5, [place] % (Auto) 7.4, Eos % (Auto) 1.6, Baso % (Auto) 0.7, Absolute Neuts (auto) 8.5 H, Absolute Lymphs (auto) 3.20, Nucleated RBC % 0 06/16/22 06:35: POC Glucose 96 Micro: Microbiology 06/15/22 22:58 Mucosa - Nasopharyngeal Respiratory Panel (PCR) - Final Radiography Diagnostic Testing: Radiology Impression Chest CTA 06/15/22 19:23 IMPRESSION: Questionable small volume nonocclusive acute pulmonary emboli in the lingular and left lower lobe subsegmental pulmonary arteries. No evidence of right heart strain. Left lingular and basilar consolidation versus atelectasis. 1.1 cm pulmonary nodule in the right lower lobe. Recommend follow-up Chest CT in 3 months and/or PET/CT. Electronically Signed: Nabeel Gómez MD at 22:07 EST , ADDENDUM: 06/15/222223 IMPRESSION: Questionable small volume nonocclusive acute pulmonary emboli in the lingular and left lower lobe subsegmental pulmonary arteries. No evidence of right heart strain. Left lingular and basilar consolidation versus atelectasis. 1.1 cm pulmonary nodule in the right lower lobe. Recommend follow-up Chest CT in 3 months and/or PET/CT. N.B. : Koko Paulson DO, confirmed on 06/15/2022 22:17:35 (ET) that the healthcare facility has received the radiology report. Electronically Signed: Nabeel Gómez MD at 22:07 EST , Physical Exam Narrative Seen and examined. Patient had back surgery by Dr. Flores about a month ago. He is recuperating well. Patient states he has dyspnea on exertion over past week gradually getting worse with any exertion. Patient has been doing 0.3 mild treadmill every day as recommended but he was getting progressively short of breath. No fever or chills. He denies chest pain or pressure. Physical exam General: Alert, Oriented x3, Cooperative, morbid obesity BMI 42.6 kg/m?. HEENT: Atraumatic, PERRLA, EOMI, Normocephalic Oral: Deep oropharyngeal structures could not be visualized. No Gingival or Mucosal Lesions/ Ulcerations Neck: Supple, No JVD, Negative Carotid Bruits Lungs: Air entry diminished in bilateral lung bases. No crepitation/rhonchi Cardiovascular: A. fib rhythm, Normal S1, Normal S2, No murmurs Abdomen: Bowel Sounds Present, Soft, Non Tender, Non-Distended : No renal angle tenderness. No suprapubic tenderness. Extremities: Mild ankle pitting edema, Capillary Refill Less than 3 Seconds Skin: No rashes, No breakdown Musculoskeletal/spine: No Tenderness to Palpation of Joints or Extremities, ROM restricted of lumbar spine. Recent lumbar spine surgery. Neurological: Cranial nerves II-XII grossly intact, DTR 2+/4 Neuro grossly intact Psych/Mental Status: Normal Affect, Appropriate. Assessment & Plan Assessment/Plan (1) Atrial fibrillation, new onset: (2) Pulmonary embolism: (3) Pneumonia: PLAN: Plan The patient is a 71 y/o M admitted with dyspnea on exertion with mild nonproductive cough. 1. Acute pulmonary nonocclusive emboli in lingular and left lower lobe subsegmental pulmonary arteries with dilated RV consistent with acute cor pulmonale. On enoxaparin therapeutic dose. 2D echo reviewed and reported EF 55 to 60%, normal LV systolic function no significant valvular abnormality. Mildly dilated RV with mildly decreased RV systolic function. Left lingular and basilar consolidation versus atelectasis. Patient also on ceftriaxone and Zithromax for suspicion of pneumonia with history of cough and leukocytosis. Respiratory panel negative. #2. New Onset, Paroxsymal atrial fibrillation: EKG in ED w/ atrial fibrillation atrial fibrillation with RVR. Patient was given Cardizem bolus. Patient on therapeutic enoxaparin drip. Patient is in A. fib. Heart rate 100-110. Metoprolol dose increased to 50 mg twice daily with extra 25 mg now. #3. Incidental right lower lobe pulmonary nodule: CTPA with noted 1.1 cm pulmonary nodule in the right lower lobe. Patient has significant nicotine tobacco history therefore needs follow-up CT scan in 3 months and/or PET CT scan #4. Hx Significant lumbar back pain with right lower extremity radiculopathy and canal stenosis s/p recent 05/16/22 Operative intervention: 05/16/2022 status post lumbar laminectomy L4-5 on the right and lumbar laminectomy decompression L3-[address] Flores: Follow-up Dr. Flores as an outpatient . #5. Prediabetes mellitus: 04/2022 HgBA1c obtained 5.9%, on ADA diet, accu checks with ISS, encourage continued lifestyle and diet changes. #6. Hypertension: Continue home regimen including losartan, hydrochlorothiazide, PRN hydralazine. #7. Hyperlipidemia: continue patient on statin therapy. #8. Morbid Obesity: Weight loss and lifestyle changes encouraged. #9. Chronic Cannabis use: Encouraged cessation. #10. Chronic urticaria: Patient's prior surgery had taken himself off of his chronic low-dose steroids and remained off following for healing purposes. He recently in the last 3 days resumed his low-dose steroids but following lengthy discussion given initiation of anticoagulant therapy is willing to instead try low-dose hydroxyzine which he is never tried previously. If this is not successful then may necessitate restarting low-dose prednisone. #11. SYMONE: BiPAP nightly. Patient will need outpatient PFT and sleep study to further evaluate for decreased RV systolic function #12. DVT prophylaxis: SCDs, therapeutic Lovenox as noted. Charges/Coding Visit Charges Inpatient E&M: 07886 Subs Hosp L2
[2022-06-16 07:42] LABS: AST(SGOT) 15 U/L (15-37); Alanine Aminotransfer ALT/SGPT 24 U/L (16-61); Albumin, Serum 3.2 g/dL (3.2-5.0); Alkaline Phosphatase 44 U/L (45-117); Anion Gap 7 (5-15); BUN 16 mg/dL (7-18); BUN/Creat Ratio 16.3 RATIO (10-20); Calcium,Total 8.4 mg/dL (8.5-10.1); Chloride 106 mmol/L (98-107); Cholesterol 143 mg/dL (200); Creatinine, Serum 0.98 mg/dL (0.70-1.30); EST Glomerular Filtration Rate 80 mL/min (>60); Est Glom Filt Rate - Afr Amer 97 mL/min (>60); Estimated Creatinine Clearance 70.14 ml/min; Globulin 3.1 g/dL (2.2-4.2); Glucose 101 mg/dL (74-106); High Density Lipoprotein 31 mg/dL; Potassium 3.9 mmol/L (3.5-5.1); Protein, Total 6.3 g/dL (6.4-8.2); Sodium Level 140 mmol/L (136-145); Thyroid Stim Hormone (TSH) 1.73 uIU/mL (0.358-3.74); Triglycerides 216 mg/dL; Troponin-I HS 12 pg/mL (3.0-78.0); Very Low Density Lipoprotein 43 mg/dL (5-40)
[2022-06-16] MEDS: Ceftriaxone 1 GM/50 ML BAG IV (09:41)
[2022-06-16] MEDS: Enoxaparin 150 MG/ML Syringe 130 MG SC ×2 (09:41→23:30)
--- NOTE | 2022-06-16 12:20 | CASEMGMT ---
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.? Pt voices understanding and consents to?assessment?at this time.? Pt sitting on edge of bed in no distress at this time.? Pt is A/O at this time and answers all questions appropriately.?? Care providers, pharmacy, and demographics verified/updated at this time. PCP: Dr Thapa Specialists: Dr Bradford, Dr Giordano (?sp)--dermatology @ [facility] Preferred Pharmacy: [facility], [place] Insurance: [employer] [facility] Prescription Benefit:?Yes Living Will/HPOA:?Has both LW and HCPOA, who is his , Jessica CHRISTOPHEROK: , Jessica Living Arrangements: Lives w/ in one-story home w/2-3 steps to enter w/rail. Independent w/ADL's and manages his own medications. does most home mgt tasks. 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 Transportation:?Pt states drives self and states no transportation concerns at this time.? also drives. DME: States has the following DME:?BIPAP from [employer]. No home O2. If he qualfies for O2 @ d/c, he chooses [employer] for DME co. Pt has a pulse ox, but he is not sure if it is working properly. He states he can afford to purchase a new one. Pt also has available, but does not use: cane, walker, W/C, RTS, shower chair. ?Pt states no need for further DME at this time.? HHC/SNF: No hx of SNF. Had HHC over 20 yrs ago. Discussed Pt Link. He is agreeable to a referral. Pt wishes to return home and states has no concerns with going home at time of discharge.? Pt states does not smoke cigarettes. He does drink ETOH once in awhile/monthly and uses Marijuana. He states mostly edibles. CM?to follow for home oxygen needs and any further discharge planning/needs.? Pt voices no further concerns/needs at this time.? Advised pt to ask for?CM?if any further questions/concerns/needs arise.? Voices understanding. PLAN:?Home. Follow for possible O2 @ d/c. Follow for anti-coag. ? Bne BSN?RN?CM
[2022-06-16 16:06] LABS: Bedside Glucose 120 mg/dL (74-106)
[2022-06-16 17:25] LABS: Bedside Glucose 111 mg/dL (74-106)
--- NOTE | 2022-06-16 19:00 | NURSING ---
emergency documentation since 06/16/2022, 1900
[2022-06-16] MEDS: Acetaminophen 325 MG Tablet 650 MG PO (23:29)
[2022-06-16] MEDS: Metoprolol Tartrate 50 MG Tablet PO (23:31)
[2022-06-17 01:05] LABS: Bedside Glucose 111 mg/dL (74-106)
[2022-06-17 05:08] VITALS: BP 107/81; PULSE 63; RESP 18; TEMP 36.6; O2SAT 95
[2022-06-17 06:54] VITALS: PULSE 91
[2022-06-17 07:05] LABS: Bedside Glucose 83 mg/dL (74-106)
[2022-06-17 07:42] VITALS: O2SAT 94
[2022-06-17 08:19] VITALS: BP 127/86; PULSE 95; RESP 16; TEMP 36.6; O2SAT 95
--- NOTE | 2022-06-17 09:14 | DCINST_ITS ---
Discharge Instructions Diet Discharge Diet: Low fat / Low cholesterol and 2000 mg Sodium Diet Activity Discharge Activity: Return to Normal Activity Weight Bearing Status: Weight bearing as tolerated Dressing / Incision Call your doctor if you observe: Fever of 101 or Higher, Coldness, Increased Pain, Numbness or Tingling, Change in Color, Inability to urinate, Inability to have a bowel movement, Shortness of breath, Dizziness, Fainting spells, Swelling in the ankles, Chest pain, Prolonged hiccupping, Increased palpitations (irregular heartbeat) and Calf discomfort Follow Up Care When: IN 2 WEEKS Test Results: Test results from this visit will be discussed in further detail at your follow- up appointment, if applicable. Discharge Plan Admission Admit Date/Time: 06/15/22 22:35 Primary Reason for Your Visit: Acute subsegmental PE Attending Provider: Tenzin Benton Primary Care Provider: Wallace Thapa Consulting Providers: Kacie Joshi Discharge Orders/Prescriptions Prescriptions: New Eliquis DVT-PE Treat 30D Start 5 mg (74 tabs) tablets,dose pack 10 mg PO BID Qty: 74 0RF Rx Instructions: 10 mg (2 tabs) twice daily for 7 days till 06/23/2022 and then twice daily to continue cefdinir 300 mg capsule 300 mg PO BID 3 Days Qty: 6 0RF Continued celecoxib 100 mg capsule 100 mg PO DAILY PRN PRN (Reason: Pain) duloxetine 60 MG capsule,delayed release(DR/EC) 60 mg PO DAILY atorvastatin 10 MG tablet 10 mg PO QHS hydrochlorothiazide 12.5 mg capsule 12.5 mg PO DAILY losartan 100 mg tablet 50 mg PO DAILY Held aspirin 81 mg tablet 81 mg PO DAILY Hold Instructions: Hold while patient is on Eliquis Referrals / Follow Up: Wallace Thapa MD [Primary Care Provider] - Within 1 Week Wood Mauricio DO [Med Staff - Active Staff] - Within 1 Month (Recent PE with acute? cor polmonale, SYMONE on CPAP) Disposition Disposition (needs filled in before D/C Order can be placed): Home, Self Care
--- NOTE | 2022-06-17 09:26 | DS.PCM_ITS ---
Providers Date of Admission: 06/15/22 Date of Discharge: 06/17/22 Primary Care Physician: Dr. Wallace Thapa MD Reason For Visit: PE, POSS PNA, PAF W/RVR Diagnosis Discharge Diagnosis (1) Atrial fibrillation, new onset: Status: Acute Code(s): I48.91 - Unspecified atrial fibrillation (2) Pulmonary embolism: Status: Acute Code(s): I26.99 - Other pulmonary embolism without acute cor pulmonale (3) Pneumonia: Status: Acute Code(s): J18.9 - Pneumonia, unspecified organism Plan The patient is a 71 y/o M admitted with dyspnea on exertion with mild nonproductive cough. 1. Acute pulmonary nonocclusive emboli in lingular and left lower lobe subsegmental pulmonary arteries with dilated RV consistent with most probably chronic cor pulmonale. On enoxaparin therapeutic dose. 2D echo reviewed and reported EF 55 to 60%, normal LV systolic function no significant valvular abnormality. Mildly dilated RV with mildly decreased RV systolic function. Left lingular and basilar consolidation versus atelectasis. Patient also on ceftriaxone and Zithromax for suspicion of pneumonia with history of cough and leukocytosis. Respiratory panel negative. 06/17: Enoxaparin switched to Eliquis 10 mg twice daily. Bleeding complications DOAC, Eliquis and Xarelto discussed but patient prefers Eliquis. Dosing reinforced, 10 mg twice daily for 1 week and then 5 mg twice daily to continue. 2D echo findings of mildly depressed RV discussed. Troponins are normal therefore I think it might be chronic cor pulmonale from obstructive sleep apnea. Follow-up with Dr. Mauricio in 1 month for sleep studies and PFT. #2. New Onset, Paroxsymal atrial fibrillation: EKG in ED w/ atrial fibrillation atrial fibrillation with RVR. Patient was given Cardizem bolus. Patient on therapeutic enoxaparin drip. Patient is in A. fib. Heart rate 100-110. Metoprolol dose increased to 50 mg twice daily with extra 25 mg now. 06/17: Patient is discharged on metoprolol 50 mg twice daily. Patient is still in A. fib on color television console monitor. Heart rate is controlled. Follow-up with [facility] director. #3. Incidental right lower lobe pulmonary nodule: CTPA with noted 1.1 cm pulmonary nodule in the right lower lobe. Patient has significant nicotine tobacco history therefore needs follow-up CT scan in 3 months and/or PET CT scan #4. Hx Significant lumbar back pain with right lower extremity radiculopathy and canal stenosis s/p recent 05/16/22 Operative intervention: 05/16/2022 status post lumbar laminectomy L4-5 on the right and lumbar laminectomy decompression L3-[address] Flores: Follow-up Dr. Flores as an outpatient . #5. Prediabetes mellitus: 04/2022 HgBA1c obtained 5.9%, on ADA diet, accu checks with ISS, encourage continued lifestyle and diet changes. #6. Hypertension: Continue home regimen including losartan, hydrochlorothiazide, PRN hydralazine. #7. Hyperlipidemia: continue patient on statin therapy. #8. Morbid Obesity: Weight loss and lifestyle changes encouraged. #9. Chronic Cannabis use: Encouraged cessation. #10. Chronic urticaria: Patient's prior surgery had taken himself off of his chronic low-dose steroids and remained off following for healing purposes. He recently in the last 3 days resumed his low-dose steroids but following lengthy discussion given initiation of anticoagulant therapy is willing to instead try low-dose hydroxyzine which he is never tried previously. If this is not successful then may necessitate restarting low-dose prednisone. Prescription for hydroxyzine given. #11. SYMONE: BiPAP nightly. Patient will need outpatient PFT and sleep study to further evaluate for decreased RV systolic function #12. DVT prophylaxis: SCDs, therapeutic Lovenox as noted. Discharge medication reconciliation done. Discharge follow-up instructions completed. Discharge process discussed with the patient and all questions were answered to patient's satisfaction. Total time spent, exact 35 minutes on discharge meds reconciliation, examination, coordination of care with nurses and ancillary staff, review of imaging and blood test and discussion with the patient on follow-up instructions. Medications at Discharge Home Medications duloxetine 60 mg capsule,delayed release 60 mg PO DAILY pain 05/23/13 atorvastatin 10 mg tablet 10 mg PO QHS cholesterol 04/26/17 celecoxib 100 mg capsule 100 mg PO DAILY PRN PRN Pain 06/16/20 aspirin 81 mg tablet 81 mg PO DAILY 04/11/22 hydrochlorothiazide 12.5 mg capsule 12.5 mg PO DAILY 05/03/22 losartan 100 mg tablet 50 mg PO DAILY 05/03/22 apixaban 5 mg (74 tabs) tablets in a dose pack (Eliquis DVT-PE Treat 30D Start) 10 mg PO BID #74 tabs 06/17/22 cefdinir 300 mg capsule 300 mg PO BID 3 days #6 caps 06/17/22 hydroxyzine pamoate 25 mg capsule 25 mg PO QHS 30 days #30 caps 06/17/22 metoprolol tartrate 50 mg tablet 50 mg PO BID 30 days #60 tabs 06/17/22 Physical Exam Narrative Seen and examined. Patient denies any chest pain or shortness of breath. He could not sleep well last night because of sleep machine making a lot of noise. Physical exam General: Alert, Oriented x3, Cooperative, morbid obesity BMI 42.6 kg/m?. HEENT: Atraumatic, PERRLA, EOMI, Normocephalic Oral: Deep oropharyngeal structures could not be visualized. No Gingival or Mucosal Lesions/ Ulcerations Neck: Supple, No JVD, Negative Carotid Bruits Lungs: Air entry diminished in bilateral lung bases. No crepitation/rhonchi Cardiovascular: A. fib rhythm, Normal S1, Normal S2, No murmurs Abdomen: Bowel Sounds Present, Soft, Non Tender, Non-Distended : No renal angle tenderness. No suprapubic tenderness. Extremities: Mild ankle pitting edema, Capillary Refill Less than 3 Seconds Skin: No rashes, No breakdown Musculoskeletal/spine: No Tenderness to Palpation of Joints or Extremities, ROM restricted at lumbar spine. Recent lumbar spine surgery. Neurological: Cranial nerves II-XII grossly intact, DTR 2+/4 Neuro grossly int act Psych/Mental Status: Normal Affect, Appropriate. Weight / BMI Weight Weight: 282 lb 3.067 oz Body Mass Index (BMI) 42.5 ABG / Lab / Microbiology Data Result Diagrams: 06/16/22 06:35 06/16/22 06:35 Laboratory: Laboratory Results - last 24 hr 06/16/22 11:33: POC Glucose 111 H 06/16/22 15:44: POC Glucose 120 H 06/16/22 23:33: POC Glucose 111 H 06/17/22 06:43: POC Glucose 83 Microbiology: Microbiology 06/17/22 05:13 Urine, Random Legionella Antigen - Final 06/17/22 05:13 Urine, Random Streptococcus pneumoniae Antigen (M - Final 06/15/22 22:58 Mucosa - Nasopharyngeal Respiratory Panel (PCR) - Final Radiography Diagnostic Testing: Radiology Impression Echocardiogram 06/16/22 05:55 Interpretation Summary The estimated ejection fraction is 55-60 %. Normal LV systolic function No significant valvular abnormalities Contrast echo/Definity used No previous echo to compare Ordering Physician: Kacie Joshi Referring Physician: MD Wallace Thapa Performed By: Dana Bruce RCS D/C Instructions Discharge Diet: Low fat / Low cholesterol and 2000 mg Sodium Diet Weight Bearing Status: Weight bearing as tolerated Call your doctor if you observe: Fever of 101 or Higher, Coldness, Increased Pain, Numbness or Tingling, Change in Color, Inability to urinate, Inability to have a bowel movement, Shortness of breath, Dizziness, Fainting spells, Swelling in the ankles, Chest pain, Prolonged hiccupping, Increased palpitations (irreg ular heartbeat) and Calf discomfort When: IN 2 WEEKS Meaningful Use Info Meaningful Use Diagnoses (Choose all that apply): VTE VTE Anticoag overlap given w/in hospital stay or rx'd at dc?: No Reason overlap not ordered, prescribed, or given for 5 days: Treatment Not Indicated Discharge Plan Admission Admit Date/Time: 06/15/22 22:35 Primary Reason for Your Visit: Acute subsegmental PE Attending Provider: Tenzin Benton Primary Care Provider: Wallace Thapa Consulting Providers: Kacie Joshi Discharge Orders/Prescriptions Prescriptions: New Eliquis DVT-PE Treat 30D Start 5 mg (74 tabs) tablets,dose pack 10 mg PO BID Qty: 74 0RF Rx Instructions: 10 mg (2 tabs) twice daily for 7 days till 06/23/2022 and then twice daily to continue cefdinir 300 mg capsule 300 mg PO BID 3 Days Qty: 6 0RF metoprolol tartrate 50 mg Tablet 50 mg PO BID 30 Days Qty: 60 2RF hydroxyzine pamoate 25 mg Capsule 25 mg PO QHS 30 Days Qty: 30 0RF Rx Instructions: FOR Itching Continued celecoxib 100 mg capsule 100 mg PO DAILY PRN PRN (Reason: Pain) duloxetine 60 MG capsule,delayed release(DR/EC) 60 mg PO DAILY atorvastatin 10 MG tablet 10 mg PO QHS hydrochlorothiazide 12.5 mg capsule 12.5 mg PO DAILY losartan 100 mg tablet 50 mg PO DAILY Held aspirin 81 mg tablet 81 mg PO DAILY Hold Instructions: Hold while patient is on Eliquis Referrals / Follow Up: Yumiko Viera MD [Med Staff - Active Staff] - Within 1 Month (for New onset A fib) Wood Mauricio DO [Med Staff - Active Staff] - Within 1 Month (Recent PE with acute? cor polmonale, SYMONE on CPAP) Wallace Thapa MD [Primary Care Provider] - Within 1 Week Disposition Disposition (needs filled in before D/C Order can be placed): Home, Self Care Charges/Coding Visit Charges Inpatient E&M: 19496 Disch Hosp >30min
--- NOTE | 2022-06-17 10:10 | CASEMGMT ---
SYD T[place]NSEND NOTE: Pt being discharged home on Eliquis. SYD CM to room. Pt given Eliquis 30-day savings card and instructed on use. Questions answered. Pt voices understanding. Pt states, if cost of refills are in the 3-400 $ range, that it is affordable for him to pay this. Pt denies having other discharge planning needs. Pt to have home O2 testing completed and green sheet is in chart w/instructions for O2 set up, if he qualifies. RNSugar, made aware. Ben CASTANEDAN SYD CM
[2022-06-17 10:46] VITALS: O2SAT 93
[2022-06-17 10:50] VITALS: BP 127/86; PULSE 95
[2022-06-17] MEDS: APIXABAN 5 MG TABLET 10 MG PO (10:50)
[2022-06-17] MEDS: Metoprolol Tartrate 50 MG Tablet PO (10:50)
== END 2022-06-17 11:23 | disposition home or self-care (01) | DRG 175 ==
LOC: ED 22:49 → PCU 23:07
PROVIDERS: Admitting Provider Family Medicine; Emergency Provider Emergency Medicine; PCP Family Medicine; Visit Provider Internal Medicine
DX: I26.99 Other pulmonary embolism without acute cor pulmonale (principal); J18.9 Pneumonia, unspecified organism; Z68.41 Body mass index [BMI] 40.0-44.9, adult; I27.81 Cor pulmonale (chronic); I48.0 Paroxysmal atrial fibrillation; E66.01 Morbid (severe) obesity due to excess calories; F12.90 Cannabis use, unspecified, uncomplicated; G47.33 Obstructive sleep apnea (adult) (pediatric); I10 Essential (primary) hypertension; E78.5 Hyperlipidemia, unspecified; F17.200 Nicotine dependence, unspecified, uncomplicated; L50.9 Urticaria, unspecified; Z79.82 Long term (current) use of aspirin; R91.1 Solitary pulmonary nodule; R73.03 Prediabetes
CPT/HCPCS: 36415; 71275; 80048; 80053; 80061; 82962; 83735; 84145; 84443; 84484; 85025; 85610; 85730; 87428; 87449; 87633; 87635; 93005; 93306; 94002; 94668; 94762; 97802; 99252; 99285; J7030; Q9957; Q9967; A4216; C8929; G0463; U0003; U0005

== ENCOUNTER → 2022-07-28 | Outpatient (CLI) | payer MEDICARE, SELFPAY ==
--- NOTE | 2022-07-28 07:58 | VDLE_ITS ---
Reason For Study: Pulmonary Embolism RIGHT LEFT GSV is normal. GSV is normal. CFV is compressible, spontaneous, phasic, CFV is compressible, spontaneous, phasic, competent and demonstrates normal competent, and demonstrates normal augmentation. augmentation. FV is compressible, spontaneous, phasic, FV is compressible, spontaneous, phasic, competent and demonstrates normal competent and demonstrates normal augmentation. augmentation. POP V is compressible, spontaneous, phasic, POP V is compressible, spontaneous, phasic, competent and demonstrates normal competent and demonstrates normal augmentation. augmentation. T/P Trunk is compressible. T/P Trunk is compressible. PTV is compressible. PTV is compressible. RT PerV is compressible. LT PerV is compressible. Procedure This is a venous duplex using B-mode, color flow and spectral Doppler. Exam performed in department. A preliminary report was called and/or faxed to Dr. Sotelo. VL/Venous Duplex US - Juanito Extrem Interpretation Summary Deep veins of the bilateral lower extremities are patent and compressible segme ntally. There is no evidence of bilateral lower extremity deep vein thrombosis. The bilateral great saphenous veins appear patent and compressible segmentally. Ordering Physician: Randolph Sotelo Referring Physician: Wallace Thapa Performed By: Sugar Hernandez, ISRA, RVT
== END | disposition home or self-care (01) ==
LOC: CVS 07:57
PROVIDERS: PCP Family Medicine; Visit Provider Internal Medicine
DX: I26.99 Other pulmonary embolism without acute cor pulmonale (principal); R07.9 Chest pain, unspecified
CPT/HCPCS: 93970

== ENCOUNTER → 2022-08-14 | Outpatient (CLI) | payer MEDICARE, SELFPAY ==
--- NOTE | 2022-08-14 08:24 | CT_ITS ---
HISTORY: lung nodule 1.1 cm, R, followup. TECHNIQUE: Helically acquired images were obtained of the chest without contrast. A radiation dose optimization technique was used for this scan. 571 images. COMPARISON: CTA 06/15/2022. FINDINGS: LARGE AIRWAYS: Grossly patent. LUNGS: Lobulated and noncalcified 14 mm right lower lobe nodule posteriorly, previously 12 mm. New 10 mm part groundglass nodule more inferiorly. Stable 2 mm nodule more anteriorly. Stable 3 mm nodule more inferiorly adjacent to the diaphragm. PLEURA: No pneumothorax or significant pleural effusion. HEART/PERICARDIUM: Heart within normal limits in size with coronary artery calcification. No pericardial effusion. VESSELS: Thoracic aorta nondilated. MEDIASTINUM/JOSE: No pathologically enlarged adenopathy. UPPER ABDOMEN: Incompletely imaged right renal cyst. BONES: Degenerative change. CT/Chest without Contrast IMPRESSION: 1.4 cm right lower lobe pulmonary nodule, slightly increased in size from prior. New 10 mm part groundglass nodule more inferiorly. Recommend correlation with PET-CT or tissue diagnosis to assess for neoplasm. Stable 2 to 3 mm right lower lobe pulmonary nodules. Electronically Signed: Nicolasa Smith MD at 15:15 EDT ,
== END | disposition home or self-care (01) ==
LOC: CT 08:23
PROVIDERS: PCP Family Medicine; Visit Provider Internal Medicine
DX: R91.1 Solitary pulmonary nodule (principal)
CPT/HCPCS: 71250

== ENCOUNTER → 2023-04-18 | Outpatient (CLI) | payer MEDICARE, SELFPAY ==
--- NOTE | 2023-04-18 13:05 | CT_ITS ---
STUDY: CTA CHEST REASON FOR EXAM: Male, 72 years old. RLL pulmonary AVM, followup RADIATION DOSAGE (If Supplied By Facility): CTDIvol = ( 13.85 ) mGy, DLP = ( 568.35 ) mGycm TECHNIQUE: The examination was performed with the intravenous administration of IV 100mL Isovue-370. Post-processing of the angiographic images was performed, with multiplanar reformation and 3D reconstruction. Individualized dose optimization techniques were used for this CT. COMPARISON: FINDINGS: Normal enhancement of the main pulmonary artery and right and left pulmonary arteries. Normal enhancement of the bilateral peripheral pulmonary arteries. There is no demonstrated pulmonary embolism. Normal thoracic aorta and visualized great vessels. There is no demonstrated aortic dissection. Normal heart and pericardium. Normal mediastinum. Normal hilar regions. Normal visualized trachea and bronchi. The lungs are well expanded. There is an 11 mm slightly lobulated right lower lobe nodule in the periphery, image 120 series 2. Right upper lobe calcified granuloma in the periphery, image 173 series 2. Right lower lobe 5 mm nodule, image 80 series 2. 3 mm peripheral nodule in the left upper lobe, image 148 series 2. 5 mm left upper lobe nodule, image 158 series 2. Normal pleura. Normal chest wall structures. Normal osseous structures. Normal visualized upper abdomen. CT/CTA Chest W/WO Contrast IMPRESSION: No demonstrated pulmonary embolism or arterial dissection. Bilateral pulmonary nodules as noted. No previous studies are available for comparison. If prior studies are not available, follow-up in 3-4 months is recommended. Electronically Signed: Joey Soto DO at 14:29 EST ,
[2023-04-18 13:28] LABS: CREATININE FINGERSTICK 1.6 mg/dL (0.70-1.30)
== END | disposition home or self-care (01) ==
LOC: CT 12:56
PROVIDERS: PCP Family Medicine; Referring Provider Internal Medicine Critical Care Medicine; Visit Provider Internal Medicine Critical Care Medicine
DX: R91.1 Solitary pulmonary nodule (principal); Q27.30 Arteriovenous malformation, site unspecified
CPT/HCPCS: 71275; Q9967

== ENCOUNTER → 2023-05-10 | Outpatient (CLI) | payer MEDICARE, SELFPAY ==
--- NOTE | 2023-05-10 | COLBX_PTH ---
PATIENT: PARKER JAY [facility] U#:[id number] AGE/SX: 72/M ROOM: RE05/10/[address]: Dr. Ezequiel Lynch MD : 1950 BED: DIS: 05/10/2023 SPEC #: [id number] RECD: 05/10/23 13:48 STATUS: MACKENZIE REQ #: [id number] DARIANA: 05/10/23 00:[address]: Ezequiel Lynch DEPT: SURGICAL PATHOLOGY RECD BY: Dennis Dye ENTERED: 05/10/23 13:49 SP TYPE: COLON BX OTHR DR: Dr. Wallace Thapa MD Tissues: Cecum, NOS Procedures: Surgery Specimen Level IV HEADER OPERATION: Colonoscopy PRE-OP DIAGNOSIS: History of polyps, screening TISSUE SUBMITTED: Cecal polyp MICROSCOPIC DIAGNOSIS Cecal polyp, biopsy: Consistent with inflammatory polyp. See comment. ARTIE:shashi 05/11/2023 COMMENT Correlation with clinical, endoscopic findings and appropriate follow up are necessary. MICROSCOPIC DESCRIPTION Slides are reviewed. GROSS DESCRIPTION Received in fixative is one container labeled with the patient's name and designated cecal polyp. The specimen consists of one irregular fragment of light gale soft tissue that measures 0.3 x 0.3 x 0.1 cm. The specimen is totally submitted in one cassette. / SJ:rg 05/10/2023 :5 CPT: 33244
== END | disposition home or self-care (01) ==
LOC: LABSPEC 12:43
PROVIDERS: PCP Family Medicine; Referring Provider Surgery; Visit Provider Surgery
DX: Z12.11 Encounter for screening for malignant neoplasm of colon (principal); Z86.010 Personal history of colon polyps
CPT/HCPCS: 88305

== ENCOUNTER 2023-06-12 11:00 | Day surgery (SDC) | payer MEDICARE, SELFPAY ==
--- NOTE | 2023-06-05 12:06 | HP.PCM_ITS ---
History and Physical Date of Admission: 06/12/23 This is a 72-year-old male who presents to [facility] today for a cardioversion. He established with us after hospitalization that he was diagnosed for pulmonary embolism, new onset atrial fibrillation, and pneumonia. During that hospitalization he was started Eliquis and metoprolol. His echocardiogram showed a normal left ventricular function. He was seen by food beverage supervisor, Dr. Mckoy, on 05/30/2023. It was recommended that patient proceed with cardioversion as it has not been attempted since initial diagnosis. It was also recommended to consider repeat echocardiogram after maintaining sinus rhythm. If he does not maintain sinus rhythm, options such as antiarrhythmic therapy or catheter ablation will be considered. He also has a past medical history of hypertension and obstructive sleep apnea. He denies chest, arm, jaw, or neck discomfort. He denies palpitations. He denies bilateral lower extremity edema. He denies claudication. He states shortness of breath with activity, shortness of breath at rest, orthopnea, or PND. He denies chronic cough. He denies significant, sudden weight gain. He denies lightheadedness, dizziness, near-syncope, or syncope. He denies blood in urine, blood in stool, or epistaxis. He denies fever with chills. He denies myalgia. He denies fatigue. His exercise level has remained stable. Intake Vital Signs: See EMR Intake Visit Reasons: DCCV Allergies lisinopril Adverse Reaction (Mild, Verified 04/02/23 13:12) Other valsartan Adverse Reaction (Mild, Verified 04/02/23 13:12) Other Medications See EMR Ejection fraction %: 55 to 59 [facility] Medical History Arthritis of carpometacarpal (CMC) joint of right thumb Atrial fibrillation, new onset Carpal tunnel syndrome Cervicalgia DDD (degenerative disc disease), lumbar Essential hypertension High cholesterol HTN (hypertension) Lateral epicondylitis of both elbows Lower back pain Lumbar radiculopathy Lung nodule seen on imaging study Marijuana use Morbid obesity Myalgia SYMONE (obstructive sleep apnea) SYMONE treated with BiPAP Pain of right thumb Primary osteoarthritis involving multiple joints Pulmonary embolism Spinal stenosis in cervical region Spinal stenosis, lumbar region without neurogenic claudication Uvular hypertrophy Wears dentures Wears glasses Wears hearing aid Surgical History History of appendectomy History of bilateral carpal tunnel release History of bilateral knee replacement History of lumbar laminectomy (~05/16/22) Hx of foot surgery S/P laminectomy Family History Mother VTE (venous thromboembolism) Unclear if provoked.Father Cardiomyopathy Heart disease Hypertension Social History household members: spouse Smoking Status: Never smoker alcohol intake: current alcohol intake frequency: a few times a month substance use type: marijuana caffeine: Yes (mt dew twice a week) Type: carbonated beverages ROS Const Const: Negative for fatigue, weakness, headache(s), frequent falls, difficulty sleeping or excessive sweating Eyes Eyes: Negative for loss of peripheral vision, transient loss of vision, blurry vision, double vision or tunnel vision ENT ENT: Negative for headache(s), dizziness, Nosebleed/epistaxis or balance problems Cardio Chest Pain: No Palpitations: No Edema: None Muscle aches with walking: None Resp Respiratory: Positive for SOB with activity; Negative for SOB at rest, SOB orthopnea\SOB lying down, Cough or paroxysmal nocturnal dyspnea GI GI: Negative nausea, vomiting, heartburn or black,tarry stools : Negative for hematuria Musc Musc: Negative for muscle aches/ myalgia, muscle weakness, joint pain or balance problems Skin Skin: Negative non-healing lesions, rash or unusual bruising Neuro Neuro: Positive for lightheadedness (Occasionally when standing up too quickly); Negative for dizziness, near syncope, syncope, frequent falls, headache(s), weakness, blurry vision, double vision or lack of coordination Michael Hematologic/Lymphatic: Negative for easy bleeding or easy bruising Endo Endo: Negative for fatigue, excessive sweating or increased thirst/drinking Psych Psych: Negative for anxiety or depression Allergy Allergy/Immunology: Negative for hives and Negative for rash Cardiology Exam Const Appearance: cooperative, healthy appearing, comfortable and no acute distress Nutritional Appearance: well nourished and obese Orientation: alert, awake and oriented x3 Head Head: normal to inspection Ears: hearing grossly normal bilaterally Nose: external nose normal Face and Sinus: face symmetric Mouth: moist mucous membranes Eyes General: appearance normal, both eyes and all related structures Eyelids: eyelids normal EOM: EOM intact bilaterally Neck Neck: normal visual inspection and no JVD Carotids: normal carotid upstroke Chest Chest inspection: normal inspection of the chest, symmetric chest movement and normal respiratory effort; Negative cough Auscultation: Bilateral: Clear to Auscultation Cardio Rate: regular rate Rhythm: irregular rhythm Heart sounds: S1 normal and S2 normal; Negative rub, gallop or murmur GI GI: normal to inspection and obese Neuro General: patient alert, patient awake, patient oriented x3 and CN's II-XI intact bilaterally Skin Skin: no rashes or lesions noted Extremities Pulses: Normal: Right Posterior Tibial Pulse, Left Posterior Tibial Pulse, Right Radial Pulse and Left Radial Pulse Lower Extremity Edema: None: Bilateral Psych Psychological: normal affect Supplemental Info Supplemental Information Echocardiogram 06/16/22: Interpretation Summary The estimated ejection fraction is 55-60 %. Normal LV systolic function No significant valvular abnormalities Contrast echo/Definity used No previous echo to compare Assessment and Plan Assessment and Plan (1) Atrial fibrillation: Status: Chronic Qualifiers: Atrial fibrillation type: persistent (not longstanding) Qualified Code(s): I48.19 - Other persistent atrial fibrillation Plan: Twelve-lead ECG on 04/02/2023 showed atrial fibrillation at a rate of 75 bpm. Twelve-lead ECG with food beverage supervisor on 05/30/2023 showed atrial fibrillation at a rate of 146 bpm. It was recommend the patient proceed with cardioversion. Once he has maintained sinus rhythm, it was recommend he undergo a repeat echocardiogram. If he does not maintain sinus rhythm, electrophysiology team will consider further treatment options that may include antiarrhythmic therapy or ablation. He acknowledges that he has been compliant with medications that includes Eliquis therapy. He will proceed with cardioversion and office follow- up. (2) HTN (hypertension): Status: Chronic Qualifiers: Hypertension type: primary hypertension Qualified Code(s): I10 - Essential (primary) hypertension Plan: Patient's blood pressure is well-controlled today. We will continue to monitor. We will not make any medication regimen changes. (3) Pulmonary embolism: Status: Chronic Qualifiers: Pulmonary embolism type: unspecified Chronicity: unspecified Acute cor pulmonale presence: unspecified Qualified Code(s): I26.99 - Other pulmonary embolism without acute cor pulmonale Plan: On Eliquis.
[2023-06-06 13:26] LABS: Anion Gap 4 (5-15); BUN 20 mg/dL (7-18); BUN/Creat Ratio 16.9 RATIO (10-20); Calcium,Total 8.9 mg/dL (8.5-10.1); Chloride 107 mmol/L (98-107); Creatinine, Serum 1.18 mg/dL (0.70-1.30); EST Glomerular Filtration Rate 65 mL/min (>60); Est Glom Filt Rate - Afr Amer 78 mL/min (>60); Glucose 151 mg/dL (74-106); Potassium 4.3 mmol/L (3.5-5.1); Sodium Level 138 mmol/L (136-145)
[2023-06-11 07:48] VITALS: BMI 43.5
--- NOTE | 2023-06-12 13:00 | PCM.OP.PRO ---
Procedure Report Date of Procedure: 06/12/23 DC cardioversion. 72-year-old man with a history of chronic persistent atrial fibrillation on therapeutic anticoagulation. Patient was seen by Dr. Mauricio of the critical care division and informed consent was obtained. Anterior-posterior pads were applied. The patient was then administered 50 mg of intravenous propofol and synchronized DC cardioversion energy with 300 J biphasic was applied with reversal to sinus rhythm. Patient tolerated the procedure well. Conclusion: Successful DC cardioversion from atrial fibrillation to sinus rhythm. Continue as per office protocol.
--- NOTE | 2023-06-12 13:17 | PCM.OP.PRO ---
Procedure Report Date of Procedure: 06/12/23 CONSCIOUS SEDATION REPORT DATE OF SERVICE: June 12, 2023 BRIEF HISTORY OF PRESENT ILLNESS: The patient is a 72-year-old male who presented to [facility] for elective outpatient cardioversion due to underlying atrial fibrillation. The patient has never previously undergone a cardioversion. He denied any prior anesthetic complications. The patient is systemically anticoagulated on Eliquis. His last surface echocardiogram demonstrated an ejection fraction of approximately 55%. The patient does have a known history of obstructive sleep apnea and is currently prescribed nocturnal BiPAP therapy. PHYSICAL EXAMINATION: VITAL SIGNS: Reviewed and were acceptable. GENERAL: The patient is an obese male, in no apparent distress, speaking in full sentences. HEENT: Normocephalic, atraumatic. Mucous membranes are moist and pink. Good mouth opening noted. Trachea is midline. CHEST: S1, S2 irregularly irregular. No murmurs, rubs or gallops were noted. LUNGS: Clear to auscultation bilaterally without appreciable wheezes, rales or rhonchi. ABDOMEN: Soft, nontender, nondistended. Positive bowel sounds. EXTREMITIES: There is no clubbing, cyanosis or edema. ASA Class: II DESCRIPTION OF PROCEDURE: After confirmation of informed consent, the patient's anesthesia plan was reviewed in detail. Propofol was chosen. Risks and benefits were reviewed and the patient agreed to proceed. At 1253, the patient was given 50 mg of propofol. The patient achieved an appropriate level of sedation and was given a 300 joule synchronized cardioversion by Dr. Cortés at the bedside. This was successful in achieving normal sinus rhythm. The patient was monitored until 1306, at which time he reached his baseline mental status and function. The patient tolerated the procedure well. COMPLICATIONS: None ESTIMATED BLOOD LOSS: None RECOMMENDATIONS: Okay to recover in usual fashion. Procedures Pulmonary 9xxxx: [id number] Con Sedation
== END 2023-06-12 13:50 | disposition home or self-care (01) ==
LOC: CLSP 11:01
PROVIDERS: Nurse Practitioner Family; PCP Family Medicine; Referring Provider Internal Medicine Cardiovascular Disease; Visit Provider Internal Medicine Cardiovascular Disease
DX: I48.19 Other persistent atrial fibrillation (principal); I26.99 Other pulmonary embolism without acute cor pulmonale; F12.90 Cannabis use, unspecified, uncomplicated; I10 Essential (primary) hypertension; E78.00 Pure hypercholesterolemia, unspecified; G47.33 Obstructive sleep apnea (adult) (pediatric)
CPT/HCPCS: 36415; 80048; 92960; 93005; J7040

== ENCOUNTER → 2024-03-27 | Outpatient (CLI) | payer MEDICARE, SELFPAY ==
[2024-03-27 08:26] LABS: CREATININE FINGERSTICK < 1.0 mg/dL (0.70-1.30); EGFR FINGERSTICK > 60.0000 mL/min (>60)
== END | disposition home or self-care (01) ==
LOC: MRI 07:25
PROVIDERS: PCP Family Medicine; Referring Provider Otolaryngology; Visit Provider Otolaryngology
DX: H90.3 Sensorineural hearing loss, bilateral (principal)
CPT/HCPCS: 70553; A9575

== ENCOUNTER → 2024-04-01 | Outpatient (CLI) | payer MEDICARE, SELFPAY ==
--- NOTE | 2024-04-01 18:43 | CT_ITS ---
STUDY: CT CHEST WITHOUT CONTRAST REASON FOR EXAM: Male, 73 years old. Lung Nodule RADIATION DOSAGE (If Supplied By Facility): CTDIvol = ( 20.15 ) mGy, DLP = ( 835.82 ) mGycm TECHNIQUE: Transaxial imaging was performed without the administration of intravenous contrast material. Multiplanar coronal and sagittal images were reformatted. Individualized dose optimization techniques were used for this CT. COMPARISON: Comparison is made with prior study August 14, 2022. FINDINGS: CHEST Stable noncalcified slightly lobulated nodule in the posterior segment of the right lower lobe measuring 1.25 cm. Stable 2 mm noncalcified nodule adjacent to the diaphragm. There is no demonstrated pleural abnormality. There are calcifications of the coronary arteries. There are small lymph nodes within the mediastinum, which are normal in size and morphology most compatible with reactive lymph hyperplasia. Normal hilar regions. Normal unenhanced pulmonary arteries. There is atherosclerotic calcification of the aortic arch. There are multi-level degenerative changes of the thoracic spine. Fat infiltration of the liver. CT/Chest without Contrast IMPRESSION: Stable examination. 12 month follow-up examination recommended. Electronically Signed: Johnson Preciado MD at 10:39 EST ,
== END | disposition home or self-care (01) ==
PROVIDERS: PCP Family Medicine; Referring Provider Internal Medicine Critical Care Medicine; Visit Provider Internal Medicine Critical Care Medicine
DX: R91.1 Solitary pulmonary nodule (principal)
CPT/HCPCS: 71250

== ENCOUNTER 2024-09-03 11:13 | Day surgery (SDC) | payer MEDICARE, SELFPAY ==
--- NOTE | 2024-08-29 10:54 | PAT.ANESEVAL ---
Pre-Assessment Diagnosis/Proposed Procedure Planned Operative Procedure(s): (B) Bilateral Hydrocelectomy Anesthesia History Anesthesia History - cotton dispatcher: Anesthesia History - cotton dispatcher Hx Hospitalization No 08/22/24 15:10 Any Problems With Anesthesia No 08/22/24 15:10 Cholinesterase deficiency No 08/22/24 15:10 You/Your Family Experience No 08/22/24 15:10 fever (hyperthermia) with Relationship Recent Exposure to Contagious No 05/16/22 06:22 Disease Does patient have nerve No 08/22/24 15:10 stimulator Patient instructed to have device shut off --Does patient have Pacemaker or ICD? When Was Last Pacemaker Check QUESTION #4 FULL TEXT: You/Your Family Experience fever (hyperthermia) with Anesthesia Last Oral Intake Last Oral intake: Last Oral Intake NPO since Meds taken in AM with sips of water? Meds patient instructed to take am of surgery PONV PONV - cotton dispatcher: PONV - cotton dispatcher Female No 08/22/24 15:10 HX of Motion Sickness No 08/22/24 15:10 HX of N/V After Surgery No 08/22/24 15:10 Non-Smoker Yes 08/22/24 15:10 Duration of Surgery greater No 08/22/24 15:10 than 60 minutes Number of Risk Factors 1 08/22/24 15:10 PONV Score Low Risk 08/22/24 15:10 Height & Weight Height & Weight: Anesthesia: Height & Weight Height 5 ft 9 in 04/24/24 07:48 Respiratory Assessment Respiratory Assessment - cotton dispatcher: Respiratory Tract Infection Hx - cotton dispatcher Hx Respiratory Tract Infection No 08/22/24 15:10 STOP Sleep Apnea STOP Sleep Apnea - cotton dispatcher: STOP Sleep Apnea - cotton dispatcher Hx Hypertension Yes: CONTROLLED WITH MEDS 08/22/24 15:10 Hx Sleep Apnea Yes 08/22/24 15:10 CPAP No 08/22/24 15:10 BIPAP Yes 08/22/24 15:10 Do you snore loudly (louder than talking or can be heard Do you often feel tired/ fatigued/ sleepy during daytime? Has anyone observed you stop breathing during sleep? STOP Results Positive 08/22/24 15:10 QUESTION #5 FULL TEXT : Do you snore loudly (louder than talking or can be heard through closed doors)? Tobacco Use History Tobacco Use History - cotton dispatcher: Tobacco Use History - cotton dispatcher Tobacco Use Smoking Status Never smoker 08/22/24 15:10 Hx Tobacco Use No 08/22/24 15:10 Years Smoking Packs Smoked per Day Smoking Cessation Date was within the last 15 years Hx Smoking Cessation Date Hx Smoking Cessation Counseling Hematologic Medial History Hematologic Hx - cotton dispatcher: Hematologic Medical Hx - cloth covered helmet puller Hx of Blood Transfusion No 08/22/24 15:10 Hx of Transfusion in last 3 No 08/22/24 15:10 Months Date of Last Transfusion (if within last 3 months) Ever experience any problems No 08/22/24 15:10 with transfusion(s)? Specify any problems Hx of Preganancy in last 3 N/A 08/22/24 15:10 Months Nurse Filling Out Transfusion VCHRISTIN 08/22/24 15:10 & Questions: Date: 08/22/24 08/22/24 15:10 Time: 15:11 08/22/24 15:10 Patient unable to answer at this time (ie. confused, unrespo /Reproduction History /Reproductive History - cotton dispatcher: /Reproductive Hx- cotton dispatcher Hx Now No 08/22/24 15:10 Gestational Age (in weeks): EDC: Hx Hx Para Hx Section SAB No 08/22/24 15:10 [facility] Medical History (Updated 08/29/24 @ 10:03 by JI Goncalves) Alcohol use Non-smoker BiPAP (biphasic positive airway pressure) dependence Shortness of breath on exertion History of pain when walking Leg cramps History of stress test History of echocardiogram Cardiology follow-up encounter History of cardioversion (~06/12/23) Essential hypertension SYMONE (obstructive sleep apnea) Lung nodule seen on imaging study Atrial fibrillation Spinal stenosis, lumbar region without neurogenic claudication Spinal stenosis in cervical region Primary osteoarthritis involving multiple joints Lateral epicondylitis of both elbows Uvular hypertrophy Lumbar radiculopathy Cervicalgia Carpal tunnel syndrome Myalgia Morbid obesity Atrial fibrillation, new onset Pulmonary embolism Wears hearing aid Wears glasses Wears dentures Marijuana use High cholesterol DDD (degenerative disc disease), lumbar Lower back pain Arthritis of carpometacarpal (CMC) joint of right thumb Pain of right thumb Home Medications ?Medication ?Instructions ?Recorded ?Last Taken ?Type duloxetine 60 mg capsule,delayed 60 mg PO DAILY pain 05/23/13 05/15/22 History release atorvastatin 10 mg tablet 10 mg PO QHS cholesterol 04/26/17 05/15/22 History hydrochlorothiazide 12.5 mg capsule 12.5 mg PO DAILY 05/03/22 05/15/22 History losartan 50 mg tablet 50 mg PO DAILY 07/26/22 Unknown History apixaban 5 mg tablet (Eliquis) 5 mg PO BID #180 tabs 04/02/23 06/12/23 Rx diltiazem HCl 120 mg 120 mg PO DAILY #180 caps 08/20/23 Unknown Rx capsule,extended release 24 hr metoprolol tartrate 50 mg tablet 50 mg PO BID #180 tabs 11/30/23 Unknown Rx celecoxib 100 mg capsule 100 mg PO BID Pain 04/24/24 Unknown History [id number] 300 mcg-K 60 1 tab PO Q24H 04/24/24 Unknown History mcg-lycop 600 mcg-lutein 300 mcg tablet (Centrum Silver Men) Allergy/AdvReac Type Severity Reaction Status Date / Time lisinopril AdvReac Mild Other Verified 08/29/24 08:41 valsartan AdvReac Mild Other Verified 08/29/24 08:41 Family History Mother VTE (venous thromboembolism) Unclear if provoked. Father Cardiomyopathy Heart disease Hypertension Surgical History History of lumbar laminectomy (~05/16/22) Hx of foot surgery S/P laminectomy History of appendectomy History of bilateral knee replacement History of bilateral carpal tunnel release Social History household members: spouse Smoking Status: Never smoker alcohol intake: current alcohol intake frequency: a few times a month substance use type: marijuana caffeine: Yes (mt dew twice a week) Type: carbonated beverages Audit: Pertinent Findings Pertinent Findings EKG Perinent findings: 06/19/2023. Sinus bradycardia. First-degree AV block. Anterior septal infarct. Age undetermined. Echo (EF%) pertinent findings: 06/16/2022. EF 55 to 60%. Normal function no valvular abnormalities. Consult pertinent findings: Cardiology 08/29/2024. Atrial fibrillation. Chronic. Heart rate controlled with diltiazem. Metoprolol. Also on Eliquis. Hypertension. Chronic. Well-controlled. Recommendation Anesthesia Recommendation Anesthesia recommendation: OPTIMIZED for anesthesia
[2024-09-03] VITALS (10 sets, daily range): BP systolic 130–174; BP diastolic 73–99; PULSE 62–78; RESP 14–18; TEMP 36.2–36.9; O2SAT 88–95; BMI 42.7
--- NOTE | 2024-09-03 11:59 | PCM.PRE.AN2 ---
ASA Classification* ASA Classification ASA Classification: 3 Assessment & Plan Anesthesia* Anesthesia Assessment Anesthesia Assessment: Discussed sedation and/or anesthesia options, risks, benefits, and alternatives with patient/parents/legal guardian/POA. Questions invited. The patient/parents/legal guardian/POA seems to understand and agrees to proceed with anesthesia plan. Reviewed the physical assessment, medical history, allergy history and patient home medications list prior to surgery/procedure/anesthetic and documented any changes. Performed airway and anesthesia risk assessments. Anesthesia Type Anesthesia Type: General Anesthesia Focused Assessment* Airway Assessment Mouth opens: >3 cm Mallampati Score: II Focused Labs Anesthesia Preop lab: CBC WBC 13.1 K/mm3 (4.4-11.0) H 06/16/22 06:35 06/16/22 RBC 4.44 M/mm3 (4.6-6.2) L 06/16/22 06:35 06/16/22 Hgb 14.0 g/dL (13.0-16.5) 06/16/22 06:35 06/16/22 Hct 43.2 % (40-54) 06/16/22 06:35 06/16/22 Plt Count 317 K/mm3 (150-450) 06/16/22 06:35 06/16/22 CHEMISTRY Potassium 4.3 mmol/L (3.5-5.1) 06/06/23 12:36 06/06/23 Sodium 138 mmol/L (136-145) 06/06/23 12:36 06/06/23 Magnesium 1.9 mg/dL (1.6-2.6) 06/15/22 20:07 06/15/22 BUN 20 mg/dL (7-18) H 06/06/23 12:36 06/06/23 Creatinine 1.18 mg/dL (0.70-1.30) 06/06/23 12:36 06/06/23 Glucose 151 mg/dL (74-106) H 06/06/23 12:36 06/06/23 POC Glucose 83 mg/dL (74-106) 06/17/22 06:43 06/17/22 TSH 1.73 uIU/mL (0.358-3.74) 06/16/22 06:35 06/16/22 COAG PT 13.5 SECONDS (11.7-14.9) 06/15/22 20:07 06/15/22 Pre-Assessment Diagnosis/Proposed Procedure Planned Operative Procedure(s): (B) Bilateral Hydrocelectomy Anesthesia History Anesthesia History - 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 When Was Last Pacemaker Check QUESTION #4 FULL TEXT: You/Your Family Experience fever (hyperthermia) with Anesthesia Last Oral Intake Last Oral intake: Last Oral Intake NPO since Meds taken in AM with sips of water? Meds patient instructed to take am of surgery PONV PONV - vamp cut out worker: PONV - vamp cut out worker Female No 08/22/24 15:10 HX of Motion Sickness No 08/22/24 15:10 HX of N/V After Surgery No 08/22/24 15:10 Non-Smoker Yes 08/22/24 15:10 Duration of Surgery greater No 08/22/24 15:10 than 60 minutes Number of Risk Factors 1 08/22/24 15:10 PONV Score Low Risk 08/22/24 15:10 Height & Weight Height & Weight: Anesthesia: Height & Weight Height 5 ft 9 in 09/02/24 09:18 Weight: 131.542 kg 09/02/24 09:18 Respiratory Assessment Respiratory Assessment - vamp cut out worker: Respiratory Tract Infection Hx - vamp cut out worker Hx Respiratory Tract Infection No 08/22/24 15:10 STOP Sleep Apnea STOP Sleep Apnea - vamp cut out worker: STOP Sleep Apnea - vamp cut out worker Hx Hypertension Yes: CONTROLLED WITH MEDS 08/22/24 15:10 Hx Sleep Apnea Yes 08/22/24 15:10 CPAP No 08/22/24 15:10 BIPAP Yes 08/22/24 15:10 Do you snore loudly (louder than talking or can be heard Do you often feel tired/ fatigued/ sleepy during daytime? Has anyone observed you stop breathing during sleep? STOP Results Positive 08/22/24 15:10 QUESTION #5 FULL TEXT : Do you snore loudly (louder than talking or can be heard through closed doors)? 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 Specify any problems Hx of Preganancy in last 3 N/A 08/22/24 15:10 Months Nurse Filling Out Transfusion VCHRISTIN 08/22/24 15:10 & Questions: Date: 08/22/24 08/22/24 15:10 Time: 15:11 08/22/24 15:10 Patient unable to answer at this time (ie. confused, unrespo /Reproduction History /Reproductive History - vamp cut out worker: /Reproductive Hx- vamp cut out worker Hx Now No 08/22/24 15:10 Gestational Age (in weeks): EDC: Hx Hx Para Hx Section SAB No 08/22/24 15:10 Active Medications Active Medications: Current Medications Generic Name Dose Route Start Last Admin Trade Name Freq PRN Reason Stop Dose Admin Cefazolin Sodium 2 gm/ N/A 20 mls @ 400 mls/hr 09/03/24 13:25 IV 09/03/24 13:27 X1 ONE Sodium Chloride 1,000 mls @ 15 mls/hr 09/03/24 11:30 IV .Q48H ISMAEL PFSH Medical History Alcohol use Non-smoker BiPAP (biphasic positive airway pressure) dependence Shortness of breath on exertion History of pain when walking Leg cramps History of stress test History of echocardiogram Cardiology follow-up encounter History of cardioversion (~06/12/23) Essential hypertension SYMONE (obstructive sleep apnea) Lung nodule seen on imaging study Atrial fibrillation Spinal stenosis, lumbar region without neurogenic claudication Spinal stenosis in cervical region Primary osteoarthritis involving multiple joints Lateral epicondylitis of both elbows Uvular hypertrophy Lumbar radiculopathy Cervicalgia Carpal tunnel syndrome Myalgia Morbid obesity Atrial fibrillation, new onset Pulmonary embolism Wears hearing aid Wears glasses Wears dentures Marijuana use High cholesterol DDD (degenerative disc disease), lumbar Lower back pain Arthritis of carpometacarpal (CMC) joint of right thumb Pain of right thumb Home Medications ?Medication ?Instructions ?Recorded ?Last Taken ?Type duloxetine 60 mg capsule,delayed 60 mg PO DAILY pain 05/23/13 05/15/22 History release atorvastatin 10 mg tablet 10 mg PO QHS cholesterol 04/26/17 05/15/22 History hydrochlorothiazide 12.5 mg capsule 12.5 mg PO DAILY 05/03/22 05/15/22 History losartan 50 mg tablet 50 mg PO DAILY 07/26/22 Unknown History apixaban 5 mg tablet (Eliquis) 5 mg PO BID #180 tabs 04/02/23 06/12/23 Rx metoprolol tartrate 50 mg tablet 50 mg PO BID #180 tabs 11/30/23 Unknown Rx celecoxib 100 mg capsule 100 mg PO BID Pain 04/24/24 Unknown History [id number]-[id number] 300 mcg-K 60 1 tab PO Q24H 04/24/24 Unknown History mcg-lycop 600 mcg-lutein 300 mcg tablet (Centrum Silver Men) diltiazem HCl 120 mg 120 mg PO DAILY #180 caps 09/01/24 Unknown Rx capsule,extended release 24 hr Allergy/AdvReac Type Severity Reaction Status Date / Time lisinopril AdvReac Mild Other Verified 09/03/24 11:59 valsartan AdvReac Mild Other Verified 09/03/24 11:59 Family History Mother VTE (venous thromboembolism) Unclear if provoked. Father Cardiomyopathy Heart disease Hypertension Surgical History History of lumbar laminectomy (~05/16/22) Hx of foot surgery S/P laminectomy History of appendectomy History of bilateral knee replacement History of bilateral carpal tunnel release Social History household members: spouse Smoking Status: Never smoker alcohol intake: current alcohol intake frequency: a few times a month substance use type: marijuana caffeine: Yes (mt dew twice a week) Type: carbonated beverages Review of Systems (Anesthesia) ROS Narrative System reviewed and no additional complaints, except as documented.
[2024-09-03] MEDS: 0.9% Normal Saline (1000mL) 1,000 ML 15 ML IV (12:00)
--- NOTE | 2024-09-03 12:38 | PCM.HP.STD ---
HPI - General General Date of Service: 09/03/24 Chief Complaint: Bilateral large hydroceles HPI Narrative PARKER JAY, is a 74 M who presents for excision of large bilateral hydroceles [facility] Medical History Alcohol use Non-smoker BiPAP (biphasic positive airway pressure) dependence Shortness of breath on exertion History of pain when walking Leg cramps History of stress test History of echocardiogram Cardiology follow-up encounter History of cardioversion (~06/12/23) Essential hypertension SYMONE (obstructive sleep apnea) Lung nodule seen on imaging study Atrial fibrillation Spinal stenosis, lumbar region without neurogenic claudication Spinal stenosis in cervical region Primary osteoarthritis involving multiple joints Lateral epicondylitis of both elbows Uvular hypertrophy Lumbar radiculopathy Cervicalgia Carpal tunnel syndrome Myalgia Morbid obesity Atrial fibrillation, new onset Pulmonary embolism Wears hearing aid Wears glasses Wears dentures Marijuana use High cholesterol DDD (degenerative disc disease), lumbar Lower back pain Arthritis of carpometacarpal (CMC) joint of right thumb Pain of right thumb Home Medications ?Medication ?Instructions ?Recorded ?Last Taken ?Type duloxetine 60 mg capsule,delayed 60 mg PO DAILY pain 05/23/13 09/02/24 History release atorvastatin 10 mg tablet 10 mg PO QHS cholesterol 04/26/17 09/02/24 History hydrochlorothiazide 12.5 mg capsule 12.5 mg PO DAILY 05/03/22 09/02/24 History losartan 50 mg tablet 50 mg PO DAILY 07/26/22 09/02/24 History apixaban 5 mg tablet (Eliquis) 5 mg PO BID #180 tabs 04/02/23 08/30/24 Rx metoprolol tartrate 50 mg tablet 50 mg PO BID #180 tabs 11/30/23 09/02/24 Rx celecoxib 100 mg capsule 100 mg PO BID Pain 04/24/24 09/02/24 History yhprspqq-tq-wjnrz 300 mcg-K 60 1 tab PO Q24H 04/24/24 09/02/24 History mcg-lycop 600 mcg-lutein 300 mcg tablet (Centrum Silver Men) Allergy/AdvReac Type Severity Reaction Status Date / Time lisinopril AdvReac Mild Other Verified 09/03/24 11:59 valsartan AdvReac Mild Other Verified 09/03/24 11:59 Family History Mother VTE (venous thromboembolism) Unclear if provoked. Father Cardiomyopathy Heart disease Hypertension Surgical History History of lumbar laminectomy (~05/16/22) Hx of foot surgery S/P laminectomy History of appendectomy History of bilateral knee replacement History of bilateral carpal tunnel release Social History household members: spouse Smoking Status: Never smoker alcohol intake: current alcohol intake frequency: a few times a month substance use type: marijuana caffeine: Yes (mt de twice a week) Type: carbonated beverages Vital Signs Vital Signs Vital Signs: 09/03/24 12:01 09/03/24 12:01 Temperature 98.3 F Temperature Source Temporal Pulse Rate 63 Respiratory Rate 18 Respiratory Pattern Normal Blood Pressure 174/90 H Blood Pressure Mean 118 Blood Pressure Source Monitor Blood Pressure Position Semi-Fowlers Blood Pressure Location Left Arm Pulse Ox 93 Oxygen Delivery Method Room Air Weight Weight: 135 kg Body Mass Index (BMI) 42.7
[2024-09-03] MEDS: Cefazolin 2 GM in Syringe IV (13:08)
--- NOTE | 2024-09-03 13:22 | DCINST_ITS ---
Discharge Instructions Diet Discharge Diet: No restrictions DC O2, CPAP, BIPAP needs Home O2 Discharge instructions: No Dressing / Incision Discharge Activity: Return to Normal Activity and May Not Drive (while taking narcotic pain medications.) Dressing / Incision Call your doctor if you observe: Fever of 101 or Higher Follow Up Care Please Follow Up With: Mike Rahman MD When: Call [phone] for an appointment Test Results: Test results from this visit will be discussed in further detail at your follow- up appointment, if applicable. Discharge Plan Admission Primary Reason for Your Visit: Bilateral hydroceles Attending Provider: Mike Rahman Primary Care Provider: Wallace Thapa Instructions Print Language: Upper Sorbian Discharge Orders/Prescriptions Prescriptions: Continued celecoxib 100 mg capsule 100 mg PO BID losartan 50 mg tablet 50 mg PO DAILY Centrum Silver Men [id number] mcg tablet 1 tab PO Q24H metoprolol tartrate 50 mg tablet 50 mg PO BID Qty: 180 3RF duloxetine 60 MG capsule,delayed release(DR/EC) 60 mg PO DAILY atorvastatin 10 MG tablet 10 mg PO QHS hydrochlorothiazide 12.5 mg capsule 12.5 mg PO DAILY Held Eliquis 5 mg tablet 5 mg PO BID Qty: 180 3RF Hold Instructions: Resume on 09/09/24. Patient Comments: STOP 3 DAYS PRIOR TO SURGERY Referrals / Follow Up: Mike Rahman MD [Med Staff - Active Staff] - Wallace Thapa MD [Primary Care Provider] - Disposition Disposition (needs filled in before D/C Order can be placed): Home, Self Care
[2024-09-03] MEDS: Bupivacaine Mpf 0.5% 30 ML VIAL (13:44)
--- NOTE | 2024-09-03 13:52 | OP.PCM_ITS ---
Operative Report (Standard) Operative Information Date of Procedure: 09/03/24 Pre-Operative Diagnosis: Large bilateral hydroceles Post-Operative Diagnosis: The same Surgery/Procedure Performed: Hydrocelectomy bilaterally control systems developer: No Type of Anesthesia: General RN Documented Start/Stop Times: Operation Date: 09/03/24 13:25 Case Time Into Pre-Op 09/03/24 11:24 Procedure Start Time: 01:24 Procedure Stop Time: 13:53 Select all DRAINS/GRAFTS/IMPLANTS that apply: Drains Drain details: DUSTIN drain Estimated Blood Loss: 5cc Specimen collected: No Description of surgery: Patient presents for surgical removal of a symptomatic hydrocele. We discussed in the preoperative setting what to expect with the surgery. We discussed the expected results with surgery. He understands with removal of a hydrocele there is a risk of bleeding, infection, hematoma formation, abscess formation, recurrence of hydrocele, pain and swelling. He will be given postoperative antibiotics and anti-inflammatories he was given instructions for no heavy lifting or heavy activity. And to wear tight supportive underwear and ice to scrotum as necessary for swelling. After discussion with the patient and review of the risk and benefits were to proceed with a hydrocelectomy. Patient was taken back to the operating room, he was placed supine on the operating room table, a timeout procedure was performed and the patient was identified in the side of the surgery was marked and confirmed by the operating room staff. Patient then underwent general anesthesia by the anesthesiology team. Once general anesthesia was secured then to the scrotum penis area was shaved prepped and draped in usual sterile fashion. On inspection he could see palpate the hydrocele that was quite large on both sides. I then made a small incision over the left hydrocele sac infiltrated the skin with Marcaine. I then made a small incision over the hydrocele sac dissected down to the hydrocele sac itself and then infiltrated the sac with lidocaine. The hydrocele sac was then grabbed with Allis clamps on both sides and drained and then through the small incision the testicle and hydrocele sac was delivered. Then using electrocautery and pinpoint dissection I removed the hydrocele sac from the testicle. We then used electrocautery and pinpoint electrocautery and suture ligation to control and get perfect hemostasis to stop all bleeding from around the testicle. The testicle itself was identified the vas deferens of the testicle the spermatic cord. There is no injury to the spermatic cord during the dissection section. After the hydrocele sac was excised I then created a dartos space in the scrotum and the testicle was placed back in the ductal space sac. We made sure that there was good hemostasis. I then made a small incision over the right hydrocele sac infiltrated the skin with Marcaine. I then made a small incision over the hydrocele sac dissected down to the hydrocele sac itself and then infiltrated the sac with lidocaine. The hydrocele sac was then grabbed with Allis clamps on both sides and drained and then through the small incision the testicle and hydrocele sac was delivered. Then using electrocautery and pinpoint dissection I removed the hydrocele sac from the testicle. We then used electrocautery and pinpoint elect rocautery and suture ligation to control and get perfect hemostasis to stop all bleeding from around the testicle. The testicle itself was identified the vas deferens of the testicle the spermatic cord. There is no injury to the spermatic cord during the dissection section. After the hydrocele sac was excised I then created a dartos space in the scrotum and the testicle was placed back in the ductal space sac. We made sure that there was good hemostasis. We then closed over the testicle in 2 layers closing the dartos layer and then the subcutaneous layer and then the skin layer with subcuticular stitches. All sponges and needles were accounted for patient's anesthetic was reversed and he was taken back to the PACU in stable condition and with tight supportive scrotal support. Left a DUSTIN drain from lower incision. Surgical Findings: Bilateral large hydroceles Complications Complications: No Admit VTE Documentation VTE Present on Admission: No VTE Mechan Device Prophylaxis: SCD's VTE Pharm Prophylaxis ordered?: No
--- NOTE | 2024-09-03 14:08 | PCM.POST.ANE ---
Anesthesia: Postop Eval I Current Vital Signs Temperature: 97.1 F Pulse Rate: 73 Blood Pressure: 133/75 Respiratory Rate: 16 Pulse Ox: 94 Assessment Airway patent: Yes Spontaneous unlabored respirations: Yes nausea: No Vomiting: No Anesthesia Complication: No Fluid Hydration Crystalloid volume administer (ml): 700 Total IV fluid infused: 700 Progress Note Anesthesia document: Postop Eval 1 completed: Yes
--- NOTE | 2024-09-03 14:52 | POSTOPAN2_ITS ---
Anesthesia Postop Eval I Sum Postop Eval Completion status Anesthesia document: Postop Eval 1 completed: Yes Anesthesia Postop Eval I Summary Anesthesia Postop Eval I Summary: Anesthesia Postop Eval I: Assessment Summary Airway patent Yes 09/03/24 14:08 OVEN DRIER TENDER.TNES Spontaneous unlabored Yes 09/03/24 14:08 OVEN DRIER TENDER.TNES respirations Mental status nausea No 09/03/24 14:08 OVEN DRIER TENDER.TNES Vomiting No 09/03/24 14:08 OVEN DRIER TENDER.TNES Anesthesia Postop Eval I: Fluid Summary Crystalloid volume administer 700 09/03/24 14:08 OVEN DRIER TENDER.TNES (ml) Colloids volume administered ( ml) Blood Product volume administered (ml) Total IV fluid infused 700 09/03/24 14:08 OVEN DRIER TENDER.TNES Anesthesia Postop Eval I: Summary Notes Anesthesia Complication No 09/03/24 14:08 OVEN DRIER TENDER.TNES Anesthesia Complication Comment: Post-operative progress note Anesthesia: Postop Eval II Evaluation Mental status: Awake Pain Level: 0 nausea: No Vomiting: No
--- NOTE | 2024-09-03 14:52 | PCM.POSTANE2 ---
Anesthesia Postop Eval I Sum Postop Eval Completion status Anesthesia document: Postop Eval 1 completed: Yes Anesthesia Postop Eval I Summary Anesthesia Postop Eval I Summary: Anesthesia Postop Eval I: Assessment Summary Airway patent Yes 09/03/24 14:08 OUTSIDE MEDICAL SALES REPRESENTATIVE.TNES Spontaneous unlabored Yes 09/03/24 14:08 OUTSIDE MEDICAL SALES REPRESENTATIVE.TNES respirations Mental status nausea No 09/03/24 14:08 OUTSIDE MEDICAL SALES REPRESENTATIVE.TNES Vomiting No 09/03/24 14:08 OUTSIDE MEDICAL SALES REPRESENTATIVE.TNES Anesthesia Postop Eval I: Fluid Summary Crystalloid volume administer 700 09/03/24 14:08 OUTSIDE MEDICAL SALES REPRESENTATIVE.TNES (ml) Colloids volume administered ( ml) Blood Product volume administered (ml) Total IV fluid infused 700 09/03/24 14:08 OUTSIDE MEDICAL SALES REPRESENTATIVE.TNES Anesthesia Postop Eval I: Summary Notes Anesthesia Complication No 09/03/24 14:08 OUTSIDE MEDICAL SALES REPRESENTATIVE.TNES Anesthesia Complication Comment: Post-operative progress note Anesthesia: Postop Eval II Evaluation Mental status: Awake Pain Level: 0 nausea: No Vomiting: No
[2024-09-03] MEDS: Acetaminophen 325 MG Tablet 650 MG PO (16:03)
[2024-09-03] MEDS: oxyCODONE 5 MG Tablet PO (16:04)
== END 2024-09-03 16:30 | disposition home or self-care (01) ==
LOC: SDC 11:19 → AC 11:21
PROVIDERS: PCP Family Medicine; Referring Provider Urology; Visit Provider Urology
PROC: (CPT 55041; principal; 2024-09-03 13:10)
DX: N43.3 Hydrocele, unspecified (principal); E78.00 Pure hypercholesterolemia, unspecified; I10 Essential (primary) hypertension; Z79.01 Long term (current) use of anticoagulants; Z99.89 Dependence on other enabling machines and devices; G47.33 Obstructive sleep apnea (adult) (pediatric); Z90.79 Acquired absence of other genital organ(s); F12.90 Cannabis use, unspecified, uncomplicated
CPT/HCPCS: 55041; 00920; J2405

== ENCOUNTER 2024-10-01 15:42 | Emergency (ER) | payer MEDICARE, SELFPAY ==
[2024-10-01 15:43] VITALS: BP 130/88; PULSE 78; RESP 18; TEMP 36.8; O2SAT 95; BMI 42.7
--- NOTE | 2024-10-01 16:03 | EX.ED.DYSGE1 ---
HPI History of Present Illness Chief Complaint: Dizziness [facility] Medical History Alcohol use Non-smoker BiPAP (biphasic positive airway pressure) dependence Shortness of breath on exertion History of pain when walking Leg cramps History of stress test History of echocardiogram Cardiology follow-up encounter History of cardioversion (~06/12/23) Essential hypertension SYMONE (obstructive sleep apnea) Lung nodule seen on imaging study Atrial fibrillation Spinal stenosis, lumbar region without neurogenic claudication Spinal stenosis in cervical region Primary osteoarthritis involving multiple joints Lateral epicondylitis of both elbows Uvular hypertrophy Lumbar radiculopathy Cervicalgia Carpal tunnel syndrome Myalgia Morbid obesity Atrial fibrillation, new onset Pulmonary embolism Wears hearing aid Wears glasses Wears dentures Marijuana use High cholesterol DDD (degenerative disc disease), lumbar Lower back pain Arthritis of carpometacarpal (CMC) joint of right thumb Pain of right thumb Home Medications ?Medication ?Instructions ?Recorded ?Last Taken ?Type duloxetine 60 mg capsule,delayed 60 mg PO DAILY pain 05/23/13 09/02/24 History release atorvastatin 10 mg tablet 10 mg PO QHS cholesterol 04/26/17 09/02/24 History hydrochlorothiazide 12.5 mg capsule 12.5 mg PO DAILY 05/03/22 09/02/24 History losartan 50 mg tablet 50 mg PO DAILY 07/26/22 09/02/24 History apixaban 5 mg tablet (Eliquis) 5 mg PO BID #180 tabs 04/02/23 08/30/24 Rx Held on 09/03/24. Instructions: Resume on 09/09/24. metoprolol tartrate 50 mg tablet 50 mg PO BID #180 tabs 11/30/23 09/02/24 Rx celecoxib 100 mg capsule 100 mg PO BID Pain 04/24/24 09/02/24 History nujjfnrx-ab-[id number] 300 mcg-K 60 1 tab PO Q24H 04/24/24 09/02/24 History mcg-lycop 600 mcg-lutein 300 mcg tablet (Centrum Silver Men) Allergy/AdvReac Type Severity Reaction Status Date / Time lisinopril AdvReac Mild Other Verified 10/01/24 15:43 valsartan AdvReac Mild Other Verified 10/01/24 15:43 Family History Mother VTE (venous thromboembolism) Unclear if provoked. Father Cardiomyopathy Heart disease Hypertension Surgical History History of lumbar laminectomy (~05/16/22) Hx of foot surgery S/P laminectomy History of appendectomy History of bilateral knee replacement History of bilateral carpal tunnel release Social History household members: spouse Smoking Status: Never smoker alcohol intake: current alcohol intake frequency: a few times a month substance use type: marijuana caffeine: Yes (mt dew twice a week) Type: carbonated beverages EXAM Physical Exam Const Vital Signs: 10/01/24 15:43 10/01/24 16:37 10/01/24 16:45 Temperature 98.2 F Temperature Source Oral Pulse Rate 78 77 Respiratory Rate 18 20 H Respiratory Effort Normal Non-Labored Respiratory Depth Normal Respiratory Pattern Normal Blood Pressure 130/88 H 158/76 H Blood Pressure Mean 102 97 Pulse Ox 95 91 Oxygen Delivery Method Room Air Room Air 10/01/24 17:30 10/01/24 17:45 10/01/24 19:00 Temperature 97.7 F L Temperature Source Pulse Rate 73 68 77 Respiratory Rate 19 H 16 19 H Respiratory Effort Respiratory Depth Respiratory Pattern Blood Pressure 165/79 H 166/69 H 158/78 H Blood Pressure Mean 100 96 104 Pulse Ox 95 95 97 Oxygen Delivery Method MDM MDM MDM Narrative Medical decision making narrative: HISTORY OF PRESENT ILLNESS: Chief complaint: Dizziness upon standing, cold-like symptoms 74-year-old male history of hyperlipidemia, hypertension, obesity A-fib on Eliquis, PE, SYMONE presents with several weeks of orthostasis. Notes he gets lightheaded/dizzy when rising from a standing position. Notes he gets better as he gets around moving. Notes his blood pressure was low at home today which concerned him. Notes no headache. Denies head trauma. Denies chest pain. Denies new shortness of breath. Does note a chronic cough. Denies hemoptysis. Notes compliance with Eliquis. Denies any bleeding diathesis. Denies trouble urinating. Denies fever or sick contacts. Denies vomiting or diarrhea. REVIEW OF SYSTEMS: Pertinent positives: Dizziness, lightheadedness Pertinent negatives: As per HPI PHYSICAL EXAM: Nursing triage notes reviewed, Vital signs reviewed Constitutional: please see [facility] HENT: MMM Eyes: Pupils equal round and reactive to light, Extraocular muscles intact Neck: No stridor, no JVD, full neck ROM Lungs: Clear to auscultation, No wheezing or rales. No increased work of breathing, no conversational dyspnea, no accessory muscle use, no nasal flaring. No respiratory distress noted Heart: Regular rate and rhythm, No murmurs, No rubs and No gallops, 2+ distal pulses (radial, femoral, posterior tibial) in all extremities Abdomen: Soft, there is no tenderness, rigidity, rebound or guarding, no obvious peritoneal signs, no palpable pulsatile abdominal masses, no auscultated abdominal bruit : No CVAT Extremities: No edema Neuro: Alert and oriented x3, neuro exam at baseline, cranial nerves II through XII are intact. No pain with extraocular muscle movement. There is negative test of skew. 5 of 5 strength in upper and lower extremities in flexion extension. Intact sensation to light touch in upper and lower extremity dermatomes. No truncal or extremity ataxia. No dysdiadochokinesia. Normal gait, non-ataxic. After ambulating for a few steps the patient does state lose balance within regains it quickly.. 2+ reflexes in upper and lower extremities. No meningeal signs. Negative Babinski. NIH of 0. Skin: No rash or lesions noted MEDICAL DECISION MAKING: Chief Complaint: please see [facility] External records reviewed: Underwent cardiac catheterization in May 2023. Reviewed echocardiogram from 2022 showed ejection fraction 55 to 60% Factors affecting care: As per [facility] Social determinants of health: none History obtained from others: none Consults: none [facility] Narrative: The patient was initially hemodynamically stable, afebrile. Initial neurologic and cardiovascular exams were unremarkable. I considered the following differential diagnosis: Dehydration, anemia, arrhythmia, electro disturbance, ACS I obtained a broad lab and imaging workup to further elucidate etiology of the patient's complaints I initially gave patient 1 L normal saline for rehydration/resuscitation ALL IMAGES (IF OBTAINED) HAVE BEEN PERSONALLY REVIEWED AND INTERPRETED BY MYSELF. EKG with AV dual placed rhythm, 80 bpm, no obvious STEMI COVID/RSV/flu is surprisingly positive for COVID-19 CBC without leukocytosis, severe anemia, no thrombocytopenia. BMP without evidence of significant electrolyte abnormalities, no anion gap, no acute kidney injury. High-sensitivity troponin is negative, no evidence of myocardial ischemia I have personally reviewed the patient's chest x-ray. Chest x-ray is unremarkable for pulmonary edema, pneumothorax, pneumonia or focal cardiopulmonary abnormality. CT scan of the brain shows no evidence of obvious recurrent Upon reassessment patient's vital signs remained stable. He noted improvement in symptoms after 1 L normal saline. Exam ambulate without any ataxia significant gait issues. I suspect his etiology is related to COVID-19 infection. This should resolve in 7 to 14 days. Strict return precautions were discussed The patient and/or family, caregivers express understanding. The patient and/or family, caregivers agrees with the plan. Shared decision making: I will have a discussion with the patient and or visitors regarding risk/benefits of further testing or admission. They will be made aware of of the risk/benefits inherent in this decision they will be given the opportunity to voice understanding. Total critical care time today provided was at least 0 minutes. This excludes separately billable procedures. Critical care time (if documented) is secondary to the patient having high probability of clinically significant/life threatening deterioration in the patient's condition which required my urgent intervention. Impression: 1. Dizziness 2. COVID-19 Dispo: Discharge home This note was generated with [employer] dictation software. It may contain incorrect words, spelling, and punctuation that were not noted in review of the chart prior to signing. Lab Data Labs: Laboratory Results - last 24 hr 10/01/24 15:55 WBC 6.5 RBC 4.96 Hgb 15.8 Hct 46.5 MCV 93.8 MCH 31.9 MCHC 34.0 RDW Std Deviation 46.1 H RDW Coeff of Tramaine 13.2 Plt Count 297 MPV 10.1 Immature Gran % (Auto) 0.300 Neut % (Auto) 60.8 Lymph % (Auto) 19.6 [place] % (Auto) 10.2 H Eos % (Auto) 8.5 H Baso % (Auto) 0.6 Absolute Neuts (auto) 4.0 Absolute Lymphs (auto) 1.27 Nucleated RBC % 0 Sodium 133 Potassium 3.9 Chloride 99 Carbon Dioxide 23.2 Anion Gap 11 BUN 19 Creatinine 0.92 Estim Creat Clear Calc 98.92 Est GFR (MDRD) Non-Af 88 BUN/Creatinine Ratio 21.1 H Glucose 139 H Calcium 9.1 Total Bilirubin 0.32 AST 26 ALT 26 Alkaline Phosphatase 60 Troponin T High Sens 23 H Total Protein 6.9 Albumin 4.1 Globulin 2.8 Albumin/Globulin Ratio 1.5 Radiography Diagnostic Testing: Clinical Impression(s) from Imaging Studies Brain CT 10/01/24 16:55 IMPRESSION: 1. Generalized brain atrophy. 2. Small vessel ischemic/degenerative changes. 3. No acute intracranial hemorrhage, midline shift or mass effect. If symptoms persist, further evaluation with MRI is recommended. Reading Location: [facility] Chest X-Ray 10/01/24 17:00 IMPRESSION: Stable mild scarring of the left lung base. Chronic lung changes are again seen, but no acute pneumonic process is evident. No pleural effusion or pneumothorax is noted The cardiomediastinal silhouette is remarkable for a somewhat tortuous aorta. No evidence of cardiomegaly. Mild thoracic spine degenerative changes are seen, along with DISH. No evidence of acute cardiopulmonary disease. Reading Location: [place] [address] Discharge Plan Triage Chief Complaint: Dizziness ED Provider: Adrien Good Dx/Rx/DC Orders Clinical Impression: COVID-19 Instructions: Coronavirus Disease 2019 (COVID-19): Overview, ED Near-Fainting, Uncertain Cause Prescriptions: No Action celecoxib 100 mg capsule 100 mg PO BID losartan 50 mg tablet 50 mg PO DAILY Eliquis 5 mg tablet 5 mg PO BID Qty: 180 3RF Patient Comments: STOP 3 DAYS PRIOR TO SURGERY Centrum Silver Men [phone] mcg tablet 1 tab PO Q24H metoprolol tartrate 50 mg tablet 50 mg PO BID Qty: 180 3RF duloxetine 60 MG capsule,delayed release(DR/EC) 60 mg PO DAILY atorvastatin 10 MG tablet 10 mg PO QHS hydrochlorothiazide 12.5 mg capsule 12.5 mg PO DAILY Primary Care Provider: Wallace Thapa Referrals: Wallace Thapa MD [Primary Care Provider] - Activity Restrictions/Additional Instructions: Thank you for trusting us with your care today! Your labs images were overall reassuring for signs of brain or heart or lung abnormalities. We did find that your positive for COVID-19 which may explain your symptoms. I recommend increasing your fluid intake to improve hydration which will decrease your symptoms. Please take Tylenol (2 pills, 650 mg), ibuprofen (2 pills, 400 mg) every 6 hours as needed for pain and fever control. Please return to the emergency department if your symptoms change or worsen. Please follow with your primary care physician for further outpatient evaluation and management. Print Language: Italian Disposition Disposition: Home, Self Care Discharge Date/Time: 10/01/24 19:13
--- NOTE | 2024-10-01 16:12 | EKG12_ITS ---
Test Reason : Blood Pressure : */* mmHG Vent. Rate : 80 BPM Atrial Rate : 80 BPM P-R Int : 332 ms QRS Dur : 86 ms QT Int : 368 ms P-R-T Axes : 66 33 31 degrees QTcB Int : 424 ms AV dual-paced rhythm with prolonged AV conduction Abnormal ECG Confirmed by RAGHAV VALENTIN MD [id number]), slot editor YANCI CRENSHAW ([id number]) on 10/06/2024 9:13:46 AM Referred By: SHAUN Confirmed By: RAGHAV VALENTIN MD
[2024-10-01 16:37] VITALS: O2SAT 93
[2024-10-01] MEDS: 0.9% Normal Saline (500mL Bag) 500 ML 1000 ML IV (16:39)
[2024-10-01 16:45] VITALS: BP 158/76; PULSE 77; RESP 20; O2SAT 91
[2024-10-01 16:46] LABS: Absolute Lymphocyte Count 1.27 X10^3/uL (0.83-4.51); Basophil# 0.04 X10^3/uL; Basophil% 0.6 % (0-1); Eosinophil# 0.55 X10^3/uL; Eosinophils% 8.5 % (0-5); Hematocrit 46.5 % (40-54); Hemoglobin 15.8 g/dL (13.0-16.5); Lymphocyte # 1.27 X10^3/ul (0.83-4.51); Lymphocyte % 19.6 % (19-41); Mean Corpuscular Hgb 31.9 pg (27.0-32.0); Mean Corpuscular Volume 93.8 fL (80-94); Mean Platelet Vol. 10.1 fl (6.2-12.0); Monocyte# 0.66 X10^3/uL; Monocyte% 10.2 % (0-10); NRBC Flagged by Analyzer 0 % (0-5); Neutrophil # 3.95 X10^3/uL (2.7-7.7); Neutrophil % 60.8 % (47-70); Platelet Count 297 K/mm3 (150-450); RBC Distribution Width CV 13.2 % (11.6-14.6); RBC Distribution Width SD 46.1 fl (35.1-43.9); Red Blood Count 4.96 M/mm3 (4.6-6.2); White Blood Count 6.5 K/mm3 (4.4-11.0)
--- NOTE | 2024-10-01 16:55 | CT_ITS ---
EXAM: CT Head Without Intravenous Contrast CLINICAL INDICATION: DIZZINESS TECHNIQUE: Axial computed tomography images of the head/brain without intravenous contrast. This CT exam was performed using one or more of the following dose reduction techniques: automated exposure control, adjustment of the mA and/or kV according to patient size, and/or use of iterative reconstruction technique. COMPARISON: No relevant prior studies available. FINDINGS: BRAIN AND EXTRA-AXIAL SPACES: The cerebral and cerebellar sulci are prominent consistent with brain atrophy. Areas of decreased attenuation in the deep cerebral white matter are consistent with small vessel ischemic/degenerative changes. Probable subarachnoid cyst of the right temporal convexity. No acute intracranial hemorrhage, midline shift or mass effect. If symptoms persist, further evaluation with MRI is recommended. BONES/JOINTS: Unremarkable. No acute fracture. SOFT TISSUES: Unremarkable. SINUSES: Mucosal thickening of the ethmoid and maxillary sinuses, likely sinus disease. MASTOID AIR CELLS: Unremarkable as visualized. No mastoid effusion. CT/Brain/Head without Contrast IMPRESSION: 1. Generalized brain atrophy. 2. Small vessel ischemic/degenerative changes. 3. No acute intracranial hemorrhage, midline shift or mass effect. If symptoms persist, further evaluation with MRI is recommended. Reading Location: [id number]
--- NOTE | 2024-10-01 17:00 | RAD_ITS ---
PROCEDURE: CHEST PA AND LATERAL 10/01/2024 REASON FOR EXAM: COUGH TECHNIQUE: Frontal and lateral views of the chest. COMPARISON: Chest x-ray of 03/31/2022. RAD/Chest PA and Lateral IMPRESSION: Stable mild scarring of the left lung base. Chronic lung changes are again seen, but no acute pneumonic process is evident. No pleural effusion or pneumothorax is noted The cardiomediastinal silhouette is remarkable for a somewhat tortuous aorta. No evidence of cardiomegaly. Mild thoracic spine degenerative changes are seen, along with DISH. No evidence of acute cardiopulmonary disease. Reading Location: [place] [id number]
[2024-10-01 17:17] LABS: Troponin T High Sensitivity 23 ng/L (<=22)
[2024-10-01 17:22] LABS: ALB/GLOB Ratio 1.5 RATIO (0.9-2.4); AST(SGOT) 26 U/L (<=37); Alanine Aminotransfer ALT/SGPT 26 U/L (<=46); Albumin, Serum 4.1 g/dL (3.4-4.8); Alkaline Phosphatase 60 U/L (40-129); Anion Gap 11 (5-15); BUN 19 mg/dL (4-19); BUN/Creat Ratio 21.1 RATIO (10-20); Calcium,Total 9.1 mg/dL (7.6-11.0); Carbon Dioxide 23.2 mmol/L (21.0-32.0); Chloride 99 mmol/L (98-108); Creatinine, Serum 0.92 mg/dL (0.70-1.20); EST Glomerular Filtration Rate 88 (>60); Estimated Creatinine Clearance 98.92 ml/min (50-250); Globulin 2.8 g/dL (2.2-4.2); Glucose 139 mg/dL (70-99); Potassium 3.9 mmol/L (3.3-5.1); Protein, Total 6.9 g/dL (5.9-8.4); Sodium Level 133 mmol/L (133-145); Total Bilirubin 0.32 mg/dL (0.00-1.30)
[2024-10-01 17:30] VITALS: BP 165/79; PULSE 73; RESP 19; O2SAT 95
[2024-10-01 17:45] VITALS: BP 166/69; PULSE 68; RESP 16; O2SAT 95
[2024-10-01 19:00] VITALS: BP 158/78; PULSE 77; RESP 19; TEMP 36.5; O2SAT 97
== END 2024-10-01 19:13 | disposition home or self-care (01) ==
PROVIDERS: Emergency Provider Emergency Medicine; PCP Family Medicine; Visit Provider Emergency Medicine
DX: U07.1 COVID-19 (principal); R42 Dizziness and giddiness; E78.00 Pure hypercholesterolemia, unspecified; I10 Essential (primary) hypertension; F12.90 Cannabis use, unspecified, uncomplicated; Z86.711 Personal history of pulmonary embolism; G47.33 Obstructive sleep apnea (adult) (pediatric); Z99.89 Dependence on other enabling machines and devices
CPT/HCPCS: 70450; 71046; 80053; 84484; 85025; 87631; 93005; 99284; A4216

== ENCOUNTER → 2025-01-05 | Outpatient (CLI) | payer MEDICARE, SELFPAY ==
--- NOTE | 2025-01-05 11:09 | MRI_ITS ---
PROCEDURE: SPINE LUMBAR W/WO CONTRAST 01/05/2025 REASON FOR EXAM: PAIN, STENOSIS, FOOT DROP TECHNIQUE: SPINE LUMBAR W/WO CONTRAST Multiplanar and multisequence images were obtained without and with intravenous gadolinium-based contrast administration. CONTRAST: Alaina scan VOLUME: 27 mL COMPARISON: 02/27/2022 FINDINGS: Grade 1 subluxation again seen of L3 upon L4. No compression deformity. No impingement of the conus. Normal caliber abdominal aorta without retroperitoneal mass. L1-L2 is unremarkable. At L2-3, facet and ligamentous hypertrophy is present with a mild degree of acquired spinal stenosis. At L3-4, there is moderate spinal stenosis and grade 1 subluxation with postsurgical changes present dorsally. Negative for foraminal nerve root compression. Improvement in spinal canal narrowing compared to the prior study however. At L4-5 postsurgical changes are present. No evidence of recurrent or residual right paracentral extrusion which was present previously. L5-S1 is unremarkable On postcontrast images, there is no abnormal conus or cauda equina enhancement. MRI/Spine Lumbar W/WO Contrast IMPRESSION: 1. Improvement in moderate spinal stenosis at L3-4 compared to the prior study. 2. Mild canal narrowing at L2-3. 3. Postsurgical changes at L4-5 without recurrent pathology. 4. Negative for pathologic enhancement. Modic type 1 changes are present at L4 -5. Reading Location[facility]
== END | disposition home or self-care (01) ==
PROVIDERS: PCP Family Medicine; Referring Provider Student in an Organized Health Care Education/Training Program; Visit Provider Student in an Organized Health Care Education/Training Program
DX: M21.371 Foot drop, right foot (principal); M48.062 Spinal stenosis, lumbar region with neurogenic claudication; M51.362 Other intervertebral disc degeneration, lumbar region with discogenic back pain and lower extremity pain; M43.16 Spondylolisthesis, lumbar region; Z98.890 Other specified postprocedural states
CPT/HCPCS: 72158; A9575

== ENCOUNTER → 2025-04-06 | Outpatient (CLI) | payer MEDICARE, SELFPAY ==
--- NOTE | 2025-04-06 17:11 | CT_ITS ---
PROCEDURE: CHEST WITHOUT CONTRAST 04/06/2025 REASON FOR EXAM: LUNG NODULE TECHNIQUE: Chest CT without contrast. Coronal and Sagittal reconstruction series were provided. One or more dose reduction techniques were used (e.g., Automated exposure control, adjustment of the mA and/or kV according to patient size, use of iterative reconstruction technique RADIATION DOSE SUMMARY: CTDlvol: 20.12 mGy DLP: 739.08 mGycm COMPARISON: April 03, 2024. FINDINGS: Hardware: None Lymph nodes: No suspicious lymph nodes are seen. Heart and Vasculature: The heart is nonenlarged. There is evidence of coronary artery calcification. Atherosclerotic calcifications of the thoracic aorta. Thoracic aorta and pulmonary arteries have normal contours; noncontrast technique limits evaluation. Coronary Artery Calcifications: Present Lungs and Airways: Stable 1.2 cm noncalcified nodule in the posterior medial segment of the right lower lobe as seen on axial image number 77. Lateral to this nodule, there is evidence of a 6.9 mm noncalcified nodule as seen on axial image number 76 this was not present on prior study. Correlation with a PET scan is recommended for further evaluation. Pleura: No pleural effusion. Upper Abdomen: I suspect a 1.5 cm adenoma of the right adrenal gland. Bones: Degenerative changes of the thoracic spine. CT/Chest without Contrast IMPRESSION: Coronary artery calcification (CAC) is is present Stable 1.2 cm noncalcified nodule in the posterior medial segment of the right lower lobe. There is a new noncalcified nodule lateral to the previously mentioned nodule measuring 6.9 mm. Correlation with PET scan recommended. Reading Location: [facility]
== END | disposition home or self-care (01) ==
LOC: CT 17:09
PROVIDERS: PCP Family Medicine; Referring Provider Nurse Practitioner Acute Care; Visit Provider Nurse Practitioner Acute Care
DX: R91.1 Solitary pulmonary nodule (principal)
CPT/HCPCS: 71250